=== PATIENT | female | born 1950 | race Caucasian/White ===

== ENCOUNTER → 2017-01-23 | Outpatient (CLI) | payer MEDICARE ==
--- NOTE | 2017-01-24 13:32 | MM ---
Reason for exam: screening (asymptomatic). Last mammogram was performed 1 year and 3 months ago. History: Patient is postmenopausal and has history of other cancer at age 56. Physical Findings: A clinical breast exam by your physician is recommended on an annual basis and results should be correlated with mammographic findings. MG 3D Screening Mammo W/Cad Bilateral CC and MLO view(s) were taken. Prior study comparison: October 30, 2015, bilateral MG 3d screening mammo w/cad. October 22, 2014, right breast MG work up mamm w CAD RT. There are scattered fibroglandular densities. Finding: There is a equal, imdistinct architectural distortion in the lower outer quadrant, middle position in the right breast, 8 cm from the nipple. New finding since October 30, 2015 and October 22, 2014. ASSESSMENT: Incomplete: need additional imaging evaluation, BI-RAD 0 RECOMMENDATION: Special view mammogram of the right breast. If lesion persists on supplemental views, image directed ultrasound is recommended. [facility] will attempt to contact patient to return for supplemental views and ultrasound if indicated.
== END | disposition home or self-care (01) ==
LOC: RADMAMWWP 09:52
PROVIDERS: ATTEND Family Medicine
DX: Z12.31 Encounter for screening mammogram for malignant neoplasm of breast (principal)
CPT/HCPCS: 77063; G0202

== ENCOUNTER → 2017-01-30 | Outpatient (CLI) | payer MEDICARE ==
--- NOTE | 2017-01-30 14:30 | MM ---
Reason for exam: additional evaluation requested from abnormal screening. Last mammogram was performed less than 1 month ago. History: Patient is postmenopausal and has history of other cancer at age 56. Physical Findings: Nurse did not find any significant physical abnormalities on exam. MG 3D Work Up W/Cad RT CC and MLO view(s) were taken of the right breast. Prior study comparison: January 23, 2017, bilateral MG 3d screening mammo w/cad. October 30, 2015, bilateral MG 3d screening mammo w/cad. There are scattered fibroglandular densities. Asymmetric breast tissue in the right middle posterior depth lower outer aspect. No worrisome lesion. These results were verbally communicated with the patient and result sheet given to the patient on 01/30/17. ASSESSMENT: Benign, BI-RAD 2 RECOMMENDATION: Return to routine screening mammogram schedule for both breasts.
== END | disposition home or self-care (01) ==
LOC: RADMAMWWP 13:19
PROVIDERS: ATTEND Family Medicine
DX: R92.8 Other abnormal and inconclusive findings on diagnostic imaging of breast (principal)
CPT/HCPCS: G0206; G0279

== ENCOUNTER → 2017-11-02 | Outpatient (CLI) | payer MEDICARE ==
--- NOTE | 2017-11-02 11:46 | BD ---
EXAMINATION TYPE: MG DEXA axial skeleton. DATE OF EXAM: 11/02/2017 COMPARISON: NONE CLINICAL HISTORY: M85.9 DISORDER OF BONE Height: 5 FT 6 IN Weight: 203 FRAX RISK QUESTIONS: Alcohol (3 or more units per day): NO Family History (Parent hip fracture): NO Glucocorticoids (More than 3mos): NO (Ex: prednisone, prednisolone, methylprednisolone, dexamethasone, and hydrocortisone). History of Fracture in Adulthood: YES Secondary Osteoporosis: 1. Type 1 Diabetes: NO 2. Hyperthyroidism: NO 3. Menopause before 45: NO 4. Malnutrition: NO 5. Chronic liver disease: NO Rheumatoid Arthritis: NO Current Tobacco Use: NO RISK FACTORS HISTORY OF: Active: YES Postmenopausal woman: AGE 55 MEDICATIONS: Prednisone or other steroids: How Long: Thyroid Medications: YES Which medication: SYNTHROID How Lon-15 YEARS Additional Medications: METOPROLOL, LISINOPRIL,HYDROCHLOROTHYIZIDE,LEVOTHYROXINE, PRAVASTATIN, WELLBU LEONOR, CONCERT Additional History: LYMPHOMA CHEMO EXAM MEASUREMENTS: Bone mineral densitometry was performed using the [employer] System. Bone mineral density as measured about the Lumbar spine is: ----- L1-L4(G/cm2): 1.366 T Score Values are as follows: ----- L2: 1.5 ----- L3: 2.4 ----- L4: 0.9 ----- L1-L4: 1.5 Bone mineral density has: INCREASED 1.8 % since study of: 2000 Bone mineral density about the R hip (g/cm2): 0.946 Bone mineral density about the L hip (g/cm2): 0.930 T Score values are as follows: -----R Neck: -0.7 -----L Neck: -0.8 -----R Total: -0.7 -----L Total: -0.2 Bone mineral density has: DECREASED -8.1 % since study of: 2000 IMPRESSION: No evidence for osteoporosis or osteopenia NOTE: T-SCORE=SD OF THE YOUNG ADULT MEAN.
== END ==
LOC: RADBDWWP 07:48
PROVIDERS: ATTEND Internal Medicine
DX: M85.9 Disorder of bone density and structure, unspecified (principal)
CPT/HCPCS: 77080

== ENCOUNTER → 2019-04-12 | Outpatient (CLI) | payer MEDICARE ==
--- NOTE | 2019-04-16 10:08 | MM ---
Reason for exam: screening (asymptomatic). Last mammogram was performed 2 years and 2 months ago. History: Patient is postmenopausal and has history of other cancer at age 56. Physical Findings: A clinical breast exam by your physician is recommended on an annual basis and results should be correlated with mammographic findings. MG 3D Screening Mammo W/Cad Bilateral CC and MLO view(s) were taken. Prior study comparison: January 30, 2017, right breast MG 3d work up w/cad RT. January 23, 2017, bilateral MG 3d screening mammo w/cad. There are scattered fibroglandular densities. No suspicious abnormality. Left cardiac device obscures the superior left breast. ASSESSMENT: Negative, BI-RAD 1 RECOMMENDATION: Routine screening mammogram of both breasts in 1 year.
== END | disposition home or self-care (01) ==
LOC: RADMAMWWP 13:09
PROVIDERS: ATTEND Internal Medicine
DX: Z12.31 Encounter for screening mammogram for malignant neoplasm of breast (principal)
CPT/HCPCS: 77063; 77067

== ENCOUNTER → 2019-07-29 | Outpatient (CLI) | payer MEDICARE ==
--- NOTE | 2019-07-30 04:22 | CT ---
EXAMINATION TYPE: CT lumbar spine wo con DATE OF EXAM: 07/29/2019 COMPARISON: None HISTORY: 69-year-old female Spondylosis, lumbosacral region. Pt c/o lower back pain, with pain radiat ing RT side. Denies injury. TECHNIQUE: Contiguous axial scanning of the lumbar spine without IV contrast. Coronal and sagittal re constructions performed. CT DLP: 1597.90 mGycm Automated exposure control for dose reduction was used. FINDINGS: Right ventricular AICD lead. A couple punctate calcified granulomas within the spleen. Otherwise, no prevertebral or paravertebral soft tissue abnormality seen. Degenerated levoconvex scoliosis mid to lower lumbar spine. Advanced disc/endplate degenerative change along the right lateral side of cavity and slight right la teral subluxation of L2 on L3 and L3 on L4. Vertebral body heights are preserved. Advanced hypertrophic facet arthropathy is present throughout with grade 1 retrolisthesis at L1-L2 an d grade 1, nearly grade 2 anterolisthesis at L4-L5. At T12-L1, there is disc osteophyte complex mildly narrowing the spinal canal with mild left neurofor aminal stenosis. At L1-L2, there is hypertrophic facet arthropathy with trace grade 1 retrolisthesis and bulging disc causing mild narrowing of the spinal canal. Mild right neuroforaminal stenosis. At L2-L3, disc osteophyte complex mildly narrowing the spinal canal. Hypertrophic facet arthropathy c ontributes to moderate left and [id number] right neuroforaminal stenosis. At L3-L4, diffuse disc bulge mildly narrowing the spinal canal. Additional hypertrophic facet arthrop athy contributes to moderate right greater than left. Foraminal stenosis. At L4-L5, severe hypertrophic facet arthropathy with nearly grade 2 anterolisthesis and uncovering of the posterior intervertebral disc. Severe focal spinal canal stenosis at this level with moderate to severe right and moderate left neuroforaminal stenosis. At L5-S1, hypertrophic facet arthropathy with mild right neuroforaminal stenosis. No significant spin al canal stenosis. IMPRESSION: 1. DEGENERATED LEVOCONVEX CURVATURE ALONG THE MID TO LOWER LUMBAR SPINE. ADVANCED HYPERTROPHIC FACET ARTHROPATHY WITH TRACE GRADE 1 RETROLISTHESIS AT L1-L2 AND GRADE 1, NEARLY GRADE 2 ANTEROLISTHESIS AT L4-L5. 2. NO VERTEBRAL COMPRESSION OR COLLAPSE. 3. CHANGES RESULT IN SEVERE FOCAL SPINAL CANAL STENOSIS AT L4-L5 WITH MODERATE TO SEVERE RIGHT AND MO DERATE LEFT NEURAL FORAMINAL STENOSIS. 4. ADDITIONAL LEVELS OF MILD SPINAL CANAL STENOSIS THROUGHOUT AND VARIABLE MILD/MODERATE NEUROFORAMIN AL STENOSIS OUTLINED ABOVE.
== END | disposition home or self-care (01) ==
LOC: RADCTMAIN 16:10
PROVIDERS: ATTEND Internal Medicine
DX: M48.061 Spinal stenosis, lumbar region without neurogenic claudication (principal); M46.96 Unspecified inflammatory spondylopathy, lumbar region; M43.8X6 Other specified deforming dorsopathies, lumbar region
CPT/HCPCS: 72131

== ENCOUNTER → 2019-10-03 | Outpatient (CLI) | payer MEDICARE ==
[2019-10-03 11:26] VITALS: BP 150/90; PULSE 62; RESP 16
--- NOTE | 2019-10-03 14:51 | P.PAINCN ---
History of Present Illness - Reason for Consult Consult date: 10/03/19 - History of Present Illness This is an initial consultation visit for this 69 years old male with a chronic history of low back pain and started 10 years ago, and intensity of the pain increased over the last, and currently the pain is constant and increases with any activity radiated to the buttock area bilaterally, she is able to walk on her own she denies any motor or sensory deficit, she denies any fever or night s weats she denies any change in the bowel movement or urination, the pain is constant and increases with any activity interfere with the quality of life, Past Medical History Past Medical History: Cancer, Deep Vein Thrombosis (DVT), Hyperlipidemia, Hypertension, Thyroid Disorder Additional Past Medical History / Comment(s): NON HODGKINS LYMPHOMA(chemo received 2005)/ DVT LEFT ARM, FRACTURE OF LEFT FOOT History of Any Multi-Drug Resistant Organisms: None Reported Past Surgical History: AICD, Tubal Ligation Additional Past Surgical History / Comment(s): LEFT FOOT Past Anesthesia/Blood Transfusion Reactions: Motion Sickness Type of Cardiac Device: AICD Device Placement Date:: 2008 Smoking Status: Never smoker - Past Family History Father Family Medical History: Cancer Additional Family Medical History / Comment(s): LUNG CANCER Medications and Allergies Home Medications Medication Instructions Recorded Confirmed Type Hydrochlorothiazide 12.5 mg PO DAILY 09/23/14 10/03/19 History Levothyroxine Sodium [Synthroid] 125 mcg PO MOTUWETHFRSA 09/23/14 10/03/19 History Lisinopril [Prinivil] 20 mg PO BID 09/23/14 10/03/19 History Methylphenidate HCl [Concerta] 54 mg PO DAILY 09/23/14 10/03/19 History Metoprolol Tartrate [Lopressor] 50 mg PO HS 09/23/14 10/03/19 History Metoprolol Tartrate [Lopressor] 100 mg PO DAILY 09/23/14 10/03/19 History Multivitamins, Thera [Multivitamin 1 each PO DAILY 09/23/14 10/03/19 History (formulary)] buPROPion HCL [Wellbutrin XL] 300 mg PO DAILY 09/23/14 10/03/19 History Pravastatin Sodium [Pravachol] 20 mg PO HS 09/20/16 10/03/19 History Omeprazole [PriLOSEC] 20 mg PO AC-SUPPER 10/27/16 10/03/19 History Naproxen Sodium [Aleve] 1 tab PO BID PRN 10/03/19 10/03/19 History Omeprazole Magnesium [PriLOSEC OTC] 1 tab PO DAILY 10/03/19 10/03/19 History Allergies Allergy/AdvReac Type Severity Reaction Status Date / Time No Known Allergies Allergy Verified 10/02/19 14:00 Physical Exam Vitals: Vital Signs Pulse Resp BP Pulse Ox 10/03/19 11:21 62 16 150/90 98 REVIEW OF ORGAN SYSTEMS: CONSTITUTIONAL: No fevers or chills. No recent weight loss. EYES: denies troubles with vision. HEENT: No difficulties with hearing. No nosebleeds. No difficulty swallowing. RESPIRATORY: Denies any troubles with breathing or dyspnea on exertion. CARDIOVASCULAR: Denies any chest pain, palpitations, or recent heart attacks. GASTROINTESTINAL: Denies fatty food intolerance. Has change in bowel habits and gas bloat. GENITOURINARY: Denies any blood in urine. Has increased urinary frequency. NEUROLOGICAL: s. No seizure disorders or headaches. MUSCULOSKELETAL: Has back pain. SKIN:no skin cancer. No rash. PSYCHIATRIC: Denies current depression or suicidal thoughts. ENDOCRINE: Denies current thyroid disorders. Denies any blood sugar glucose intolerance. HEME/LYMPHATIC: Denies any lumps and bumps around the neck. History of deep venous thrombosis. ALLERGY/IMMUNOLOGY: No immunoglobulin therapy. No immune deficiencies. BREAST: Denies current breast lumps, pain or nipple discharge. Physical Examinations : Constitutiona : Cooperative , not in acute distress . HEENT : nech : supple , no Lymphadenopathy , normal thyroid size . : eyes no ptosis , no icterus, no photophobia . : ENT normal of hearing , normal oropharynx , no Thrush . Respiratory : Chest clear to auscultations Bilaterally , no wheezing , no Rhonchi . Cardiovascula : regular rate and rhythem , S1 , S2 , no S3 , no S4. Gastrointestina : abdomen soft no tenderness , bowel sounds , no organomegally . Genitourinary : Defferred . neurologic : Cranial nerve II to XII intact , no focal neurological deffecit . psychatric : alert , oriented X 3 , appropriate affect , intact judgment and insight . Lymphatic : no Lymphadenopathy . musculoskeltal : Lumber spine moter stegnth lower extremities ,thigh and legs 5/5 Right side , 5/5 Left side deep tendon reflexes : normal Knee Jerk , normal ankle Jerk lumber facet Loading Test= positive Right , positive Left Range of motion of the lumbar spine Flexion 30 degrees, extension 10 degrees strait leg raising test , positive at 45degree Fabere test= positive Right , and positive left . Sever tenderness over the Sacroiliac joint on the Right , and Left sides Gaenslen test= positive bilaterally. Seated flexion test= positive bilaterally. Results Comments: Computed tomography scan of the lumbar spine= multilevel lumbar degenerative disc disease and multilevel lumbar facet arthropathy, lumbar spinal stenosis Assessment and Plan Plan: Assessment and plan= chronic severe low back pain secondary to multifactorial causes lumbar degenerative disc disease lumbar spinal stenosis and lumbar spondylosis with lumbar facet arthropathy, and bilateral sacroiliitis. She will be good candidate to have lumbar epidural steroid injections under fluoroscopy guidance at L5-S1 x2 , we reevaluated the patient's response to the treatment after the second lumbar epidural steroid injections, most likely patient need diagnostic medial branch block and possible RFA of the medial branch depending, on her response to the lumbar epidural steroid injection, treatment plan discussed with the patient and she agreed with the preceding Time with Patient: Greater than 30 PQRS Measure Charge Sheet Measure #130: Documentation of Current Meds in Medical Chart: Patient's medications documented in chart Measure #226: Tobacco Use: Screen & Cessation Intervention: Pt not a tobacco user Measure #111: Pneumonia Vaccination: Pneumococcal vaccine administered or previously received Measure #47: Advance Care Plan: Advance care planning discussed & documented, pt chose/unable to give Measure #412: Opioid Treatment Agreement: No documentation of signed opioid treatment agreement Measure #408: Opioid Therapy Follow-up Evaluation: Patient had NO f/u eval minimum every 3 months during opioid therapy Measure #317: Preventitive Care & Scrn High Bld Press & F/U: Pre-hypertensive or hypertensive BP documented, pt will f/u with PCP Measure #128: Body Mass Index (BMI) Screening & Follow-up: BMI documented ABOVE normal parameters - f/u documented Measure #131: Pain Assessment & Follow-up: Pain positive & plan documented, Follow-up scheduled Measure #431: Unhealthy Alcohol Use Preventative Care & Scrn: Patient not identified as an unhealthy alcohol user PQRS Narrative: Smoking Status Never smoker Blood Pressure 150/90 Pain Intensity [Lower Back] 3 Scale Used Numeric (1 - 10) Hx Alcohol Use (MH) Yes Home Medications: Ambulatory Orders Hydrochlorothiazide 12.5 mg PO DAILY 09/23/14 Levothyroxine Sodium [Synthroid] 125 mcg PO MOTUWETHFRSA 09/23/14 Lisinopril [Prinivil] 20 mg PO BID 09/23/14 Methylphenidate HCl [Concerta] 54 mg PO DAILY 09/23/14 Metoprolol Tartrate [Lopressor] 50 mg PO HS 09/23/14 Metoprolol Tartrate [Lopressor] 100 mg PO DAILY 09/23/14 Multivitamins, Thera [Multivitamin (formulary)] 1 each PO DAILY 09/23/14 buPROPion HCL [Wellbutrin XL] 300 mg PO DAILY 09/23/14 Pravastatin Sodium [Pravachol] 20 mg PO HS 09/20/16 Omeprazole [PriLOSEC] 20 mg PO AC-SUPPER 10/27/16 Naproxen Sodium [Aleve] 1 tab PO BID PRN 10/03/19 Omeprazole Magnesium [PriLOSEC OTC] 1 tab PO DAILY 10/03/19
== END | disposition home or self-care (01) ==
LOC: PNWHC3 11:08
PROVIDERS: ATTEND Specialist
DX: G89.29 Other chronic pain (principal); M48.061 Spinal stenosis, lumbar region without neurogenic claudication; M51.36 Other intervertebral disc degeneration, lumbar region; M47.816 Spondylosis without myelopathy or radiculopathy, lumbar region; M46.96 Unspecified inflammatory spondylopathy, lumbar region; M46.1 Sacroiliitis, not elsewhere classified; I10 Essential (primary) hypertension; E78.5 Hyperlipidemia, unspecified; Z79.890 Hormone replacement therapy; Z79.1 Long term (current) use of non-steroidal anti-inflammatories (NSAID); Z79.899 Other long term (current) drug therapy
CPT/HCPCS: 99211

== ENCOUNTER 2019-10-16 07:43 | Day surgery (SDC) | payer MEDICARE ==
[2019-10-14 15:41] VITALS: BMI 31.4
[~2019-10-16 07:43] MED LIST: LACTATED RINGERS 1,000 ML IV SCH
[2019-10-16 08:33] VITALS: RESP 16; TEMP 97.4
--- NOTE | 2019-10-16 09:16 | P.PCN ---
Date of Procedure: 10/16/19 Procedure(s) Performed: PREOPERATIVE DIAGNOSIS: 1- Lumbar Degenerative Disc Diseases 2-Lumbar spondylosis with Facet arthropathy without myelopathy. 3-lumbar spinal stenosis. POSTOPERATIVE DIAGNOSIS: 1-Lumber Degenerative Disc Diseases 2-Lumbar spondylosis with Facet arthropathy without myelopathy. 3-lumbar spinal stenosis PROCEDURE 1. Lumbar epidural steroid injection under fluoroscopic guidance at the L5-S1 level. (Fluoroscopy imaging was available in radiology department) 2. Lumbar epidurogram. ANESTHESIA: Local with 1% lidocaine 3 ml and , moderate sedation with intravenous Versed 2 mg ,and fentanyle 50 Mcg EBL: Minimal PROCEDURE INDICATION: The patient with low back pain and radiculitis symptoms unresponsive to conservative treatment. Fluoroscopy was used to optimize visualization of the needle placement and to maximize safety. PROCEDURE DESCRIPTION / TECHNIQUE: The patient was seen and identified in the preoperative area. Risks, benefits, complications including but not limited to infections ,bleeding ,allergic reaction to the medications ,nerve damage and not complete pain releife , and alternatives were discussed with the patient. The patient agreed to proceed with the procedure and signed the consent. IV was started, and vital signs were stable. Patient was taken to the OR and time out was completed. The patient was placed in the prone position on procedure table and a pillow was placed under the abdomen to reduce lumbar lordosis. The lumbosacral area was prepped and draped in the usual sterile fashion.ere closely monitored during the procedure. Conscious sedation was used during the procedure to decrease patients anxiety. Vital signs was monitered during the entire procedure. Using anterior-posterior fluoroscopy, the L5-S1 interlaminar space was identified and the skin over this site was marked and then infiltrated with 1% lidocaine subcutaneously. Subsequently, a 20-gauge Tuohy epidural needle was inserted and advanced toward the epidural space using the ``Loss of resistance technique and guided by AP and lateral fluoroscopy. The correct needle position in the epidural space was verified with the injection of 2 mL of the water soluble contrast dye Isovue 200 contrast and observing an excellent epidurogram with the epidural spread of the dye, after negative aspiration for blood and CSF and in the absence of paresthesias. Again after negative aspiration, a 6 ml mixture containing 60 mg of Depo-medrol , and 2 ml of preservative free Normal Saline, and 2 ml of preservative free lidocaine 1% solution was injected and a washout of epidurogram was seen. Needle was withdrawn intact, skin was cleansed, and bandages were applied. COMPLICATIONS: None DISPOSITION / PLANS: The patient was placed in a supine position and transferred to the recovery area in a stable condition for observation. There was no evidence of lower extremity motor or sensory deficit after the procedure. Patient was discharged from the recovery room after meeting discharge criteria. Home discharge instructions were given to the patient by the staff. The patient was reexamined prior to discharge. The patient will schedule a follow up in the clinic in 2-4 weeks.
[2019-10-16] MEDS ORDERED: IV FLUID CONTINUATION 1,000 ML IV ONE (09:22)
[2019-10-16 09:41] VITALS: BP 153/97; PULSE 62
--- NOTE | 2019-10-16 09:48 | FL ---
Fluoroscopy History: Lower back pain JADONI, 7sec fl time
== END 2019-10-16 09:59 | disposition home or self-care (01) ==
LOC: ORPAIN 07:43
PROVIDERS: ATTEND Specialist
DX: G89.29 Other chronic pain (principal); M47.26 Other spondylosis with radiculopathy, lumbar region; M48.061 Spinal stenosis, lumbar region without neurogenic claudication; M51.16 Intervertebral disc disorders with radiculopathy, lumbar region; I10 Essential (primary) hypertension; E78.5 Hyperlipidemia, unspecified; E07.9 Disorder of thyroid, unspecified; M46.1 Sacroiliitis, not elsewhere classified; Z86.718 Personal history of other venous thrombosis and embolism; Z85.72 Personal history of non-Hodgkin lymphomas; Z92.21 Personal history of antineoplastic chemotherapy; Z98.890 Other specified postprocedural states; Z95.810 Presence of automatic (implantable) cardiac defibrillator; Z98.51 Tubal ligation status; Z80.1 Family history of malignant neoplasm of trachea, bronchus and lung; Z79.890 Hormone replacement therapy; Z79.899 Other long term (current) drug therapy
CPT/HCPCS: 62323; J2250; J1030; J3010; Q9966

== ENCOUNTER → 2019-10-30 | Outpatient (CLI) | payer MEDICARE ==
--- NOTE | 2019-10-30 11:09 | BD ---
EXAMINATION TYPE: Axial Bone Density DATE OF EXAM: 10/30/2019 COMPARISON: Prior DEXA bone scan November 02, 2017 CLINICAL HISTORY: Postmenopausal female. Age related osteoporosis. Height: 5 FT 5 1/2 IN Weight: 202 FRAX RISK QUESTIONS: Alcohol (3 or more units per day): NO Family History (Parent hip fracture): NO Glucocorticoids (More than 3mos): NO (Ex: prednisone, prednisolone, methylprednisolone, dexamethasone, and hydrocortisone). History of Fracture in Adulthood: YES Secondary Osteoporosis: 1. Type 1 Diabetes: NO 2. Hyperthyroidism: NO 3. Menopause before 45: NO 4. Malnutrition: NO 5. Chronic liver disease: NO Rheumatoid Arthritis: NO Current Tobacco Use: NO RISK FACTORS HISTORY OF: Active: YES Postmenopausal woman: APPROX AGE 55 MEDICATIONS: Prednisone or other steroids: How Long: Thyroid Medications: YES Which medication: SYNTHROID How Long: APPROX 15 YEARS Additional Medications: SYNTHROID, METOPROLOL, LISINOPRIL, HYDROCHLOROTHIAZIDE, PRAVASTATIN, WELLBUT RIN, CONCERTA Additional History: JUST HAD STEROID SHOT IN HER BACK TWO WEEKS AGO EXAM MEASUREMENTS: Bone mineral densitometry was performed using the [employer]. Bone mineral density as measured about the Lumbar spine is: ----- L1-L4(G/cm2): 1.357 T Score Values are as follows: ----- L2: 1.9 ----- L3: 1.7 ----- L4: 0.7 ----- L1-L4: 1.5 Bone mineral density has: DECREASED -1.6 % since study of: 2016 Bone mineral density about the R hip (g/cm2): 0.922 Bone mineral density about the L hip (g/cm2): 0.922 T Score values are as follows: -----R Neck: -0.8 -----L Neck: -0.8 -----R Total: -1.1 -----L Total: -0.2 Bone mineral density has: DECREASED -3.2 % since study of: 2016 IMPRESSION: Normal (Values between +1 and -1 indicate normal bone mass). Consider repeating this study in 5 year s or sooner if there is some new clinical indication. No significant change from prior. NOTE: T-SCORE=SD OF THE YOUNG ADULT MEAN.
== END | disposition home or self-care (01) ==
LOC: RADBDWWP 09:40
PROVIDERS: ATTEND Internal Medicine
DX: M81.0 Age-related osteoporosis without current pathological fracture (principal)
CPT/HCPCS: 77080

== ENCOUNTER → 2020-07-22 | Outpatient (CLI) | payer MEDICARE ==
[2020-07-22 14:02] VITALS: BP 145/77; PULSE 75; RESP 14; TEMP 98.3
--- NOTE | 2020-07-22 14:48 | P.PAINPG ---
Subjective Progress Note Date: 07/22/20 This is a follow-up visit for this 70 years old female with a chronic history of severe low back pain she is diagnosed with lumbar degenerative disc disease lumbar spinal stenosis and lumbar spondylosis with lumbar facet arthropathy, visual was seen in the pain clinic last year and we did lumbar epidural steroid injections x1, she reported that she had minimal benefit for short-term, currently she is complaining of severe low back pain with radiation to the posterior aspect of her lower extremity bilaterally more prominent on the right side, the pain is constant and increases with any activity, she is doing physical therapy, she denies any motor or sensory deficits but she feels some weakness in her lower extremity especially after she walked for a distance, she had no fever or numbness which has no change in the bowel movement or urination Objective - Vital Signs Vital signs: Vital Signs Temp 98.3 F 07/22/20 13:47 Pulse 75 07/22/20 13:47 Resp 14 07/22/20 13:47 BP 145/77 07/22/20 13:47 Pulse Ox 96 07/22/20 13:47 - Exam Constitutiona : Cooperative , not in acute distress . HEENT : nech : supple , no Lymphadenopathy , normal thyroid size . : eyes no ptosis , no icterus, no photophobia . neurologic : Cranial nerve II to XII intact , no focal neurological deffecit . psychatric : alert , oriented X 3 , appropriate affect , intact judgment and insight . Lymphatic : no Lymphadenopathy . musculoskeltal : Lumber spine moter stegnth lower extremities ,thigh and legs 5/5 Right side , 5/5 Left side deep tendon reflexes : normal Knee Jerk , normal ankle Jerk lumber facet Loading Test= positive Right , positive Left Range of motion of the lumbar spine Flexion 30 degrees, extension 10 degrees strait leg raising test , positive at 45 degree Fabere test= positive Right , and positive left . Sever tenderness over the Sacroiliac joint on the Right , and Left sides Gaenslen test= positive bilaterally. Seated flexion test= positive bilaterally. Assessment and Plan Plan: Computed tomography scan of the lumbar spine= multilevel lumbar degenerative disc disease and multilevel lumbar facet arthropathy, lumbar spinal stenosis Assessment and plan= chronic severe low back pain secondary to multifactorial causes lumbar degenerative disc disease lumbar spinal stenosis and lumbar spondylosis with lumbar facet arthropathy, and bilateral sacroiliitis. Patient had lumbar epidural steroid injections 1 done last year , she had the minimal benefit for short-term Patient will be good candidate for diagnostic medial branch block lumbar area L3, L4, L5 to target the facet joint at L4-5 , and L5-S1 x2 and if it is positive ,then will proceed with RFA of the medial branch lumbar area (note = patient had right upper extremity very small open wound size 4-5 mm in diameter for this reason ,we will avoid using straight during the diagnostic medial branch block ) Time with Patient: Less than 30 PQRS Measure Charge Sheet Measure #130: Documentation of Current Meds in Medical Chart: Patient's medications documented in chart Measure #226: Tobacco Use: Screen & Cessation Intervention: Pt screened for tobacco use AND intervention given Measure #111: Pneumonia Vaccination: Pneumococcal vaccine administered or previously received Measure #47: Advance Care Plan: Advance care planning discussed & documented, pt chose/unable to give Measure #412: Opioid Treatment Agreement: No documentation of signed opioid treatment agreement Measure #408: Opioid Therapy Follow-up Evaluation: Patient had NO f/u eval minimum every 3 months during opioid therapy Measure #317: Preventitive Care & Scrn High Bld Press & F/U: Pre-hypertensive or hypertensive BP documented, pt will f/u with PCP Measure #128: Body Mass Index (BMI) Screening & Follow-up: BMI documented ABOVE normal parameters - f/u documented Measure #131: Pain Assessment & Follow-up: Pain positive & plan documented Measure #431: Unhealthy Alcohol Use Preventative Care & Scrn: Patient identified as unhealthy alcohol user; counseling given PQRS Narrative: Smoking Status Never smoker Blood Pressure 145/77 Pain Intensity [Lower Back] 1 Scale Used Numeric (1 - 10) Hx Alcohol Use (MH) Yes Home Medications: Ambulatory Orders Levothyroxine Sodium [Synthroid] 125 mcg PO MOTUWETHFRSA 09/23/14 Metoprolol Tartrate [Lopressor] 50 mg PO HS 09/23/14 Metoprolol Tartrate [Lopressor] 100 mg PO DAILY 09/23/14 Multivitamins, Thera [Multivitamin (formulary)] 1 each PO DAILY 09/23/14 buPROPion HCL [Wellbutrin XL] 300 mg PO DAILY 09/23/14 hydroCHLOROthiazide 12.5 mg PO DAILY 09/23/14 lisinopriL [Prinivil] 20 mg PO BID 09/23/14 Pravastatin Sodium [Pravachol] 20 mg PO HS 09/20/16 Omeprazole [PriLOSEC] 20 mg PO AC-SUPPER 10/27/16 Naproxen Sodium [Aleve] 1 tab PO BID PRN 10/03/19 Omeprazole Magnesium [PriLOSEC OTC] 40 mg PO QAM 10/03/19 Sulfamethoxazole/Trimethoprim [Sulfamethoxazole-Tmp Ds Tablet] 1 each PO BID 07/15/20 Controlled Substance Measures - Controlled Substance Measures Is patient prescribed a controlled substance at discharge?: No
== END | disposition home or self-care (01) ==
LOC: PNWHC3 13:24
PROVIDERS: ATTEND Specialist
DX: M48.061 Spinal stenosis, lumbar region without neurogenic claudication (principal); M47.816 Spondylosis without myelopathy or radiculopathy, lumbar region; M51.36 Other intervertebral disc degeneration, lumbar region; M46.96 Unspecified inflammatory spondylopathy, lumbar region; M46.1 Sacroiliitis, not elsewhere classified; Z79.891 Long term (current) use of opiate analgesic; Z79.899 Other long term (current) drug therapy; Z79.890 Hormone replacement therapy
CPT/HCPCS: 99211

== ENCOUNTER 2020-08-11 11:13 | Day surgery (SDC) | payer MEDICARE ==
[2020-08-07 12:16] VITALS: BMI 32.5
[2020-08-11 11:44] VITALS: RESP 16; TEMP 96.8
[2020-08-11] MEDS ORDERED: LIDOCAINE 1% (10MG/ML) FOR IV START INTRADERMA ONE (11:50)
[2020-08-11] MEDS ORDERED: ROPIVACAINE 5MG/ML 20ML VIAL ONE (12:31)
[2020-08-11] MEDS ORDERED: MIDAZOLAM 2 MG/2 ML VIAL ONE (12:31)
[2020-08-11] MEDS ORDERED: fentaNYL (PF) 50 MCG/ML 2 ML AMP ONE (12:31)
--- NOTE | 2020-08-11 12:53 | P.PCN ---
Date of Procedure: 08/11/20 Procedure(s) Performed: PREOPERATIVE DIAGNOSIS : 1- Lumbar spondylosis with Facet Arthropathy without myelopathy . 2- Lumber degenerative disc disease POSTOPERATIVE DIAGNOSIS: 1- Lumbar spondylosis with Facet Arthropathy without myelopathy . 2- Lumber degenerative disc disease PROCEDURE: Diagnostic bilateral L3 , L4 , and L5 medial branch block under fluoroscopy guidance(fluoroscopy images available in the radiology Department ) ( To target the facet joint between L4-5 , and L5-S1 ) ANESTHESIA:, moderate sedation with intravenous Versed 1 mg and Fentanyl 50 mcg. EBL: Minimal COMPLICATION: None PROCEDURE INDICATION: Chronic low back pain secondary to Facet arthropathy unresponsive to conservative treatment. PROCEDURE DESCRIPTION: the patient was seen and identified in the preop holding area , risks and benefits and possible complications of the procedure and alternative were discussed with the patient, and the patient agreed to proceed with the procedure and signed the consent and vital signs monitored during the procedure and fluoroscopy was used to maximize the benefit and accuracy of the needle placement, and sedation was given to decrease patient anxiety, patient was taken to the procedure room and placed in prone position vital signs monitored in the back prepped with chlorhexidine X3 then under strict sterile technique using a right oblique fluoroscopy ,the junction of the transverse process and the superior articulating process of the right L3 , L4 , and L5 vertebra which corresponding to the fluoroscopy image of the eye of the Alan dog on the block side for the medial branches and subsequently , after local infiltration of skin and subcu tissuies with Ropivacaine 0.5 % , one mL at each level ,then 22-gauge Quincke-type needles , 3 needle was used , each one of them placed at the junction of the base of the transverse process and the superior articular process at the appropriate level, and the needle was advanced until the periosteum contacted, needle placement confirmed with AP oblique and lateral view and after appropriate needle placement confirmed, and after negative aspiration for heme and CSF and there was no paresthesia 1-1/2 mL of Ropivacaine 0.5% , then half mL injected at each level after negative aspiration the needle subsequently removed and the same procedure repeated for the left side at left side at L3 , L4 and L5 levels. At the end of the procedure and the needles removed and a bandage applied after the skin was cleaned the cleaning solution patient taken to recovery room in stable condition and monitors in the recovery room for 20-30 minutes and discharged home in stable condition after discharge criteria met and patient will follow up with the pain clinic in 2-4 weeks note = next time I recommend to use 5 inch long needles
[2020-08-11] MEDS ORDERED: IV FLUID CONTINUATION 700 ML IV ONE (12:58)
[2020-08-11 13:15] VITALS: BP 135/81; PULSE 60
--- NOTE | 2020-08-11 13:23 | FL ---
Fluoroscopy INDICATION: Pain FINDINGS: Fluoroscopy time: 11 seconds. Images obtained: 4. IMPRESSIONS: 1. Documentation of fluoroscopy.
== END 2020-08-11 13:30 | disposition home or self-care (01) ==
LOC: ORPAIN 11:13
PROVIDERS: ATTEND Specialist
DX: M47.816 Spondylosis without myelopathy or radiculopathy, lumbar region (principal); M51.36 Other intervertebral disc degeneration, lumbar region; S41.101A Unspecified open wound of right upper arm, initial encounter; B95.62 Methicillin resistant Staphylococcus aureus infection as the cause of diseases classified elsewhere; Z78.0 Asymptomatic menopausal state; X58.XXXA Exposure to other specified factors, initial encounter
CPT/HCPCS: 64493; 64494; J2250; J3010; J2795; 99152

== ENCOUNTER 2020-08-25 12:55 | Day surgery (SDC) | payer MEDICARE ==
[2020-08-24 12:28] VITALS: BMI 32.5
[2020-08-25 13:17] VITALS: RESP 16; TEMP 97.1
[2020-08-25] MEDS ORDERED: LIDOCAINE 1% (10MG/ML) FOR IV START INTRADERMA ONE (13:24)
[2020-08-25] MEDS ORDERED: MIDAZOLAM 2 MG/2 ML VIAL ONE (13:34)
[2020-08-25] MEDS ORDERED: TRIAMCINOLONE ACETONIDE 40 MG/ML 1 ML VIAL ONE (13:34)
[2020-08-25] MEDS ORDERED: ROPIVACAINE 5MG/ML 20ML VIAL ONE (13:34)
--- NOTE | 2020-08-25 13:54 | P.PCN ---
Date of Procedure: 08/25/20 Surgeon: Wei Acuna Pathology: none sent Condition: stable Disposition: PACU Description of Procedure: PREOPERATIVE DIAGNOSIS : 1- Lumbar spondylosis with Facet Arthropathy without myelopathy . 2- Lumber degenerative disc disease POSTOPERATIVE DIAGNOSIS: 1- Lumbar spondylosis with Facet Arthropathy without myelopathy . 2- Lumber degenerative disc disease PROCEDURE: Diagnostic bilateral L3 -4 , L4 -5 , and L5-S1 medial branch block under fluoroscopy Physician: Wei Acuna MD ANESTHESIA: Local with 1% lidocaine; IV moderate conscious sedation with Versed 2 mg . EBL: Negligible COMPLICATION: None. PROCEDURE INDICATION: Chronic low back pain secondary to Facet arthropathy unresponsive to conservative treatment. PROCEDURE DESCRIPTION: the patient was seen and identified in the preop holding area , risks and benefits and possible complications of the procedure and alternatives were discussed with the patient, and the patient agreed to proceed with the procedure and signed the consent. IV was started and vital signs monitored during the procedure and fluoroscopy was used to maximize the benefit and accuracy of the needle placement, sedation was given to decrease patient anxiety, patient was taken to the procedure room and placed in prone position vital signs monitored. The patient was brought into the procedure room and placed in prone position. Skin was prepped with Chloraprep and draped in a sterile manner. Lidocaine 1% was used to numb the skin up at the target points that were chosen as follows: at the L5-S1 level which corresponds to the dorsal ramus of L5 the target points were at the superior medial aspect of the sacral ala on each side of the spine on the AP view of fluoroscopy, and for the L2, L3 and L4 medial branches the target points were the connection between the transverse process and the superior to go process of L3, L4 and L5 respectively on the oblique views of fluoroscopy. I used 22-gauge 5 inch Quincke spinal needles for this procedure and after contacting bone at the target points mentioned above I injected 1 mL of a mixture of Kenalog 40 mg +5 MLS of Ropivacaine 0.5% PF . Patient tolerated procedure well. At the end of the procedure the needles removed and a bandage applied after the skin was cleaned the cleaning solution. patient was then taken to the recovery room in stable condition and monitored in the recovery room for 20-30 minutes and discharged home in stable condition after discharge criteria met . A copy of the needle placement picture was saved to the C-arm machine.
[2020-08-25] MEDS ORDERED: IV FLUID CONTINUATION 800 ML IV ONE (13:55)
[2020-08-25 14:23] VITALS: BP 137/85; PULSE 72
--- NOTE | 2020-08-25 14:34 | FL ---
Fluoroscopy INDICATION: Pain FINDINGS: Fluoroscopy time: 7 seconds. Images obtained: 4. IMPRESSIONS: 1. Documentation of fluoroscopy.
== END 2020-08-25 14:28 | disposition home or self-care (01) ==
LOC: ORPAIN 12:55
PROVIDERS: ATTEND Anesthesiology
DX: G89.29 Other chronic pain (principal); M47.816 Spondylosis without myelopathy or radiculopathy, lumbar region; M51.36 Other intervertebral disc degeneration, lumbar region; I11.0 Hypertensive heart disease with heart failure; I50.9 Heart failure, unspecified; Z95.810 Presence of automatic (implantable) cardiac defibrillator; Z78.0 Asymptomatic menopausal state
CPT/HCPCS: 64493; 64494; 64495; J2250; J3301; J2795; 99152

== ENCOUNTER → 2020-09-16 | Outpatient (CLI) | payer MEDICARE ==
[2020-09-16 14:28] VITALS: BP 143/90; PULSE 78; RESP 18; TEMP 98.3
--- NOTE | 2020-09-16 14:46 | P.PN ---
Subjective Progress Note Date: 09/16/20 This is a 70-year-old female with history of lower back pain which has responded to a diagnostic lumbar medial branch block with more than 50% of pain relief. The pain relief that started immediately after the procedure and lasted only for couple of days. Patient denies new-onset weakness, bowel/bladder incontinence, or any other signs or symptoms of cauda equina syndrome. There are no signs of acute intoxication, and no indications of medication diversion or overuse. In addition to above, 13-point review of systems is also negative for chest pain, shortness of breath, changes in vision, changes in hearing, new onset weakness, abdominal pain, diarrhea, extreme fatigue, malaise, fever, skin changes, homicidal or suicidal ideation, or bowel or bladder incontinence. Vital Signs: Reviewed in EMR Gen: AAOx3, NAD HEENT: PERRLA,hearing grossly normal Pulm: resp unlabored Neck: supple, trachea midline Neuro exam of the lower extremities: Normal muscle strength bilaterally Straight leg raising test: Milton's test: Range of motion of the lumbar spine: Facet loading test: Tenderness in the paravertebral musculature: Positive on the lumbar area Neuro: CN II-XII grossly intact, Imaging: Reviewed in EMR/chart Assessment: Lumbar spondylosis without myelopathy Lumbar DDD Plan: 1. Explanation: Opioid and psychological risk scores were reviewed. Diagnoses, prognoses, and multiple treatment options including but not limited to physical therapy, interventional therapies, adjuvant medical therapies, narcotic medication therapies, and surgery were discussed with the patient and all questions were answered to the patient's satisfaction. 2. Opioid agreement: Signed with the patient and the patient is warned not to use opioids while driving or before driving and not to combine opioids with benzodiazepines or alcohol. 3. Counseling: The patient was counseled extensively on SMOKING CESSATION, BODY MASS INDEX, EXERCISE. Specifically, the patient was instructed regarding the importance of smoking cessation, obesity, and exercise in the context of both chronic pain and overall health. 4. Procedures: Scheduled for lumbar medial branch RFA bilaterally for the L4 5 and L5-S1 levels 5. Consultations: None 6. Investigations: None 7. Medications: none 8. Disposition: Return to the above-mentioned procedure as soon as possible and toward clinic in 4 weeks for reevaluation 9. Maps were reviewed and were appropriate. Objective - Vital Signs Vital signs: Vital Signs Temp 98.3 F 09/16/20 14:21 Pulse 78 09/16/20 14:21 Resp 18 09/16/20 14:21 BP 143/90 09/16/20 14:21 Pulse Ox 96 09/16/20 14:21
== END | disposition home or self-care (01) ==
LOC: PNWHC3 13:34
PROVIDERS: ATTEND Anesthesiology
DX: M51.36 Other intervertebral disc degeneration, lumbar region (principal); M47.816 Spondylosis without myelopathy or radiculopathy, lumbar region
CPT/HCPCS: 99211

== ENCOUNTER 2020-11-20 07:25 | Day surgery (SDC) | payer MEDICARE ==
[2020-11-17 09:40] VITALS: BMI 32.5
[2020-11-20] MEDS ORDERED: LIDOCAINE 1% (10MG/ML) FOR IV START INTRADERMA ONE (08:00)
[2020-11-20 08:11] VITALS: TEMP 97.9
[2020-11-20] MEDS ORDERED: MIDAZOLAM 2 MG/2 ML VIAL ONE (08:41)
[2020-11-20] MEDS ORDERED: ROPIVACAINE 5MG/ML 20ML VIAL ONE (08:41)
[2020-11-20] MEDS ORDERED: TRIAMCINOLONE ACETONIDE 40 MG/ML 1 ML VIAL ONE (08:41)
[2020-11-20] MEDS ORDERED: fentaNYL (PF) 50 MCG/ML 2 ML AMP ONE (08:41)
[2020-11-20] MEDS ORDERED: LIDOCAINE 1% INJ 10MG/ML (20 ML MDV) ONE (08:41)
--- NOTE | 2020-11-20 09:10 | P.PCN ---
Date of Procedure: 11/20/20 Surgeon: Wei Acuna Pathology: none sent Condition: stable Disposition: PACU Description of Procedure: PREOPERATIVE DIAGNOSIS: Right Lumbar spondylosis without myelopathy,obesity POSTOPERATIVE DIAGNOSIS: Lumbar spondylosis without myelopathy,obesity PROCEDURES : Right Radiofrequency thermocoagulation L3-L4, L4-L5, and L5-S1 medial branch, with fluoroscopic guidance ANESTHESIA: IV moderate conscious sedation with versed and fentanyl and local infiltration with lidocaine 1% 5 ml Physician:Wei Acuna MD EBL: Minimal PROCEDURE INDICATION: The patient with low back pain secondary to lumbar facet arthropathy who had more than 50% relief of her pain with previous diagnostic lumbar medial branch block with bupivacaine. PROCEDURE DESCRIPTION / TECHNIQUE: The patient was seen and identified in the preoperative area. Risks, benefits, complications, including but not limited to risk of infection ,bleeding , allergic reactions to the medications and no complete pain relief , and alternatives were discussed with the patient, the patient agreed to proceed with the procedure and signed the consent. IV was started. Vital signs remained stable throughout the procedure. Patient was taken to the OR and time out was completed. The patient was placed in the prone position on the procedure table. The lumber area was prepped and draped in the usual sterile fashion. . Vital signs were closely monitored during the procedure .IV sedation was used during the procedure to decrease patients anxiety. The target points were identified as follows: For the L5-S1 level which corresponds to the dorsal ramus of L5 the target point was at the superior medial aspect of the sacral ala on the -Rt- side of the spine on the AP view of fluoroscopy and for the L2, L3, and L4 medial branches the target points were at the connection between the transverse process and the superior articular process of L3, L4, and L5 vertebra respectively on the -Rt oblique view of fluoroscopy. skin was marked, and localized with 1% lidocaineat these points. Subsequently, an 18 -hl radiofrequency needles with a 10-mm curved active tips were advanced guided by fluoroscopy to each of the target points mentioned above in a superior medial direction to get the active tips as parallel as possible to the medial branches tracks. AP, oblique, and lateral views of fluoroscopy were used to verify needle tips position. Each level then underwent motor testing at 2.5 Hz and 0 to 3 volt with local stimulation, but no radicular symptoms down the legs. I then injected 1 mL of lidocaine 1% in each needle before starting radiofrequency thermocoagulation at 80 degrees celsius for 90 seconds. After that I injected 1 ml of PF Marcaine 0.5%(3 mls) with 40 mg of Kenalog, 1 mL of this mixture was given in each needle before taking the needles out intact. At the end of the procedure, the skin was cleansed and bandages were applied. A copy of needle placement fluoroscopy was saved on the C-arm machine. COMPLICATIONS: No acute complications. DISPOSITION / PLANS: The patient was placed in a supine position and transferred to the recovery area in a stable condition for observation and was discharged from the recovery room after meeting discharge criteria. Home discharge instructions given to the patient by the staff. The patient was reexamined prior to discharge. The patient will schedule a follow up in the clinic in 2-4 weeks.
[2020-11-20] MEDS ORDERED: IV FLUID CONTINUATION 1,000 ML IV ONE (09:16)
--- NOTE | 2020-11-20 09:19 | FL ---
EXAMINATION TYPE: FL guided pain mgmt statistic DATE OF EXAM: 11/20/2020 CLINICAL HISTORY: Low back pain. TECHNIQUE: Fluoroscopy. COMPARISON: None. FINDINGS: Fluoroscopic guidance was provided during pain relief procedure performed by Dr. Acuna. A total of 21 seconds of fluoroscopic time was utilized during the procedure and 3 spot images are a cquired. Images acquired shows needle localization at several levels in the lumbar spine. IMPRESSION: As Above.
[2020-11-20 09:21] VITALS: RESP 18
[2020-11-20 09:46] VITALS: BP 140/90; PULSE 78
== END 2020-11-20 09:48 | disposition home or self-care (01) ==
LOC: ORPAIN 07:25
PROVIDERS: ATTEND Anesthesiology
DX: M47.816 Spondylosis without myelopathy or radiculopathy, lumbar region (principal); I10 Essential (primary) hypertension; E78.5 Hyperlipidemia, unspecified; I73.9 Peripheral vascular disease, unspecified; E07.9 Disorder of thyroid, unspecified; Z79.890 Hormone replacement therapy; Z79.899 Other long term (current) drug therapy; Z95.810 Presence of automatic (implantable) cardiac defibrillator
CPT/HCPCS: 64635; 64636 ×2; J2250; J3301; J2001; J3010; J2795

== ENCOUNTER → 2021-01-06 | Outpatient (CLI) | payer MEDICARE ==
[2021-01-06 10:44] VITALS: BP 157/92; PULSE 70; RESP 18; TEMP 97.8
--- NOTE | 2021-01-06 11:25 | P.PN ---
Subjective Progress Note Date: 01/06/21 This is a follow-up visit for this 70 years old female with chronic history of severe low back pain, she is diagnosed with lumbar degenerative disc disease, lumbar spinal stenosis, and lumbar spondylosis with lumbar facet arthropathy, previously we have done diagnostic medial branch block bilaterally and she get significant improvement in her low back pain, and recently with an RFA of the medial branch lumbar area on the right side, currently she is complaining of severe low back pain with radiation to the buttock bilaterally, the pain is constant and increases with any activity, she is doing physical therapy, she denies any motor or sensory deficits , she had no fever or numbness which has no change in the bowel movement or urination Objective - Vital Signs Vital signs: Vital Signs Temp 97.8 F 01/06/21 10:42 Pulse 70 01/06/21 10:42 Resp 18 01/06/21 10:42 BP 157/92 01/06/21 10:42 Pulse Ox 99 01/06/21 10:42 - Exam Physical Examinations : -Constitutiona : Cooperative , not in acute distress . -HEENT : nech : supple , no Lymphadenopathy , normal thyroid size . : eyes : no ptosis , no icterus, no photophobia . - neurologic : Cranial nerve II to XII intact , no focal neurological deffecit . -psychatric : alert , oriented X 3 , appropriate affect , in tact judgment and insight . -Lymphatic : no Lymphadenopathy . - musculoskeltal : . Lumber spine moter stegnth lower extremities ,thigh and legs 5/5 Right side , 5/5 Left side deep tendon reflexes : normal Knee Jerk , normal ankle Jerk lumber facet Loading Test =positive Right , posiutive Left Range of motion of the lumbar spine Flexion 60 degrees, extension 30 degrees strait leg raising test = negative bilaterally Fabere test= negative bilaterally Sever tenderness over the Sacroiliac joint on the Right , and Left sides Gaenslen test= positive right ,and positive left . Seated flexion test= positive right ,and positive Left . Assessment and Plan Plan: Computed tomography scan of the lumbar spine= multilevel lumbar degenerative disc disease and multilevel lumbar facet arthropathy, lumbar spinal stenosis Assessment and plan= chronic severe low back pain secondary to multifactorial causes lumbar degenerative disc disease lumbar spinal stenosis and lumbar spondylosis with lumbar facet arthropathy, and bilateral sacroiliitis. Status post failed the medial branch lumbar area on the right side Patient will be scheduled to have RFA of the medial branch lumbar area on the left side at L3, L4, L5 in the future if she continued to have severe low back pain maybe she will benefit from bilateral sacroiliac joint steroid injection PQRS Measure Charge Sheet Measure #130: Documentation of Current Meds in Medical Chart: Patient's medications documented in chart Measure #226: Tobacco Use: Screen & Cessation Intervention: Pt is not tobacco user Measure #111: Pneumonia Vaccination: Pneumococcal vaccine not administered or previously received Measure #47: Advance Care Plan: Advance care planning discussed & documented, pt chose/unable to give Measure #412: Opioid Treatment Agreement: No documentation of signed opioid treatment agreement Measure #408: Opioid Therapy Follow-up Evaluation: Patient had NO f/u eval minimum every 3 months during opioid therapy Measure #317: Preventitive Care & Scrn High Bld Press & F/U: Pre-hypertensive or hypertensive BP documented, pt will f/u with PCP Measure #128: Body Mass Index (BMI) Screening & Follow-up: BMI documented ABOVE normal parameters - f/u documented Measure #131: Pain Assessment & Follow-up: Pain positive & plan documented Measure #431: Unhealthy Alcohol Use Preventative Care & Scrn: Patient identified as unhealthy alcohol user; counseling given PQRS Narrative: Time with Patient: Less than 30
== END | disposition home or self-care (01) ==
LOC: PNWHC3 10:12
PROVIDERS: ATTEND Specialist
DX: M48.061 Spinal stenosis, lumbar region without neurogenic claudication (principal); M51.36 Other intervertebral disc degeneration, lumbar region; M47.816 Spondylosis without myelopathy or radiculopathy, lumbar region; M46.1 Sacroiliitis, not elsewhere classified; G89.29 Other chronic pain
CPT/HCPCS: 99211

== ENCOUNTER 2021-01-29 09:52 | Day surgery (SDC) | payer MEDICARE ==
[2021-01-27 13:38] VITALS: BMI 32.8
[2021-01-29 10:22] VITALS: TEMP 97.8
[2021-01-29] MEDS ORDERED: LIDOCAINE 1% (10MG/ML) FOR IV START INTRADERMA ONE (10:33)
[2021-01-29] MEDS ORDERED: methylPREDNISolone ACETATE 40 MG/ML 1 ML VIAL ONE (10:37)
[2021-01-29] MEDS ORDERED: MIDAZOLAM 2 MG/2 ML VIAL ONE (10:37)
[2021-01-29] MEDS ORDERED: fentaNYL (PF) 50 MCG/ML 2 ML AMP ONE (10:37)
[2021-01-29] MEDS ORDERED: ROPIVACAINE 5MG/ML 20ML VIAL ONE (10:37)
--- NOTE | 2021-01-29 11:08 | P.PCN ---
Date of Procedure: 01/29/21 Procedure(s) Performed: PREOPERATIVE DIAGNOSIS: 1-Lumbar Spondylosis with Facet Arthropathy without myelopathy. POSTOPERATIVE DIAGNOSIS: 1- Lumbar Spondylosis with Facet Arthropathy without myelopathy. PROCEDURES : Left Radiofrequency thermocoagulation, L3 , L4 , and L5 medial branch, with fluoroscopic guidance (fluoroscopy images available in the radiology department) ( to denervate the facet joint at Left L4-5 ,and L5-S1 levels ) ANESTHESIA: Monitored anesthesia care by anesthesia department . EBL: Minimal PROCEDURE INDICATION: The patient with low back pain secondary to lumbar facet arthropathy who had more than 50% relief of her pain with previous diagnostic lumbar medial branch block with bupivacaine. PROCEDURE DESCRIPTION / TECHNIQUE: The patient was seen and identified in the preoperative area. Risks, benefits, complications, including but not limited to risk of infection ,bleeding , allergic reactions to the medications and no complete pain releife , and alternatives were discussed with the patient, the patient agreed to proceed with the procedure and signed the consent. IV was started. Vital signs remained stable throughout the procedure. Patient was taken to the OR and time out was completed. The patient was placed in the prone position on the procedure table. The lumber area was prepped and draped in the usual sterile fashion. . Vital signs were closely monitored during the procedure .IV sedation was used during the procedure to decrease patients anxiety. Using AP and then oblique fluoroscopy, the ``eye of the Alan dog corresponding to the connection between the superior and transverse articular processes of Left L3, L4, and L5 were identified, marked, and localized with 1% lidocaine. Subsequently, a 18 guage ( VENUM ) 150-mm radiofrequency cannula with a 10-mm active tip was advanced guided by fluoroscopy to each of the``eyes of the Alan dog at Left L3, L4, and L5. Each site then underwent sensory testing at 50 Hz and 0 to 1 volt and motor testing at 2.5 Hz and 0 to 3 volt with local stimulation, but no radicular symptoms down the legs. Thereafter each sites underwent radiofrequency thermocoagulation at 80 degrees celsius for 90 seconds after injecting 0.5 ml of PF Ropivacaine 1ml, then after the thermocoagulation done , 1 ml of the block solution containing Depo-Medrol 40 mg and 3 ml of Ropivacaine 0.5% was injected at the Left L3 , L4 , and L5 , levels after negative aspiration of CSF and blood and with no paresthesias. Cannulas were retracted while injecting lidocaine 1% until the needle is out. At the end of the procedure, the skin was cleansed and bandages were applied. COMPLICATIONS: No acute complications. DISPOSITION / PLANS: The patient was placed in a supine position and transferred to the recovery area in a stable condition for observation and was discharged from the recovery room after meeting discharge criteria. Home discharge instructions given to the patient by the staff. The patient was reexamined prior to discharge. The patient will schedule a follow up in the clinic in 2-4 weeks.
[2021-01-29] MEDS ORDERED: LACTATED RINGERS 1,000 ML IV ONE (11:13)
[2021-01-29 11:38] VITALS: PULSE 67; RESP 18
[2021-01-29 11:39] VITALS: BP 143/80
--- NOTE | 2021-01-29 11:41 | FL ---
Fluoroscopy INDICATION: Pain FINDINGS: Fluoroscopy time: 15 seconds. Images obtained: 3. IMPRESSIONS: 1. Documentation of fluoroscopy.
== END 2021-01-29 11:52 | disposition home or self-care (01) ==
LOC: ORPAIN 09:52
PROVIDERS: ATTEND Specialist
DX: M47.816 Spondylosis without myelopathy or radiculopathy, lumbar region (principal); I10 Essential (primary) hypertension; E03.9 Hypothyroidism, unspecified
CPT/HCPCS: 64635; 64636; J2250; J1030; J3010; J2795

== ENCOUNTER → 2021-02-15 | Outpatient (CLI) | payer MEDICARE ==
[2021-02-15 13:43] VITALS: BP 154/90; PULSE 69; RESP 18; TEMP 97.8
--- NOTE | 2021-02-15 13:50 | P.PN ---
Subjective Progress Note Date: 02/15/21 This is a follow-up visit for this 70 years old female, with chronic history of severe low back pain, she is diagnosed with lumbar degenerative disc disease, lumbar spinal stenosis, and lumbar spondylosis with lumbar facet arthropathy, previously we have done RFA of the medial branch lumbar area , currently she is complaining of severe low back pain with radiation to the buttock bilaterally, the pain is constant and increases with any activity, she is done physical therapy, she denies any motor or sensory deficits , she had no fever or numbness which has no change in the bowel movement or urination Objectiv Physical Examinations : -Constitutiona : Cooperative , not in acute distress . -HEENT : nech : supple , no Lymphadenopathy , normal thyroid size . : eyes : no ptosis , no icterus, no photophobia . - neurologic : Cranial nerve II to XII intact , no focal neurological deffecit . -psychatric : alert , oriented X 3 , appropriate affect , intact judgment and insight . -Lymphatic : no Lymphadenopathy . - musculoskeltal : . Lumber spine moter stegnth lower extremities ,thigh and legs 5/5 Right side , 5/5 Left side deep tendon reflexes : normal Knee Jerk , normal ankle Jerk lumber facet Loading Test =positive Right , posiutive Left Range of motion of the lumbar spine Flexion 60 degrees, extension 30 degrees strait leg raising test = negative bilaterally Fabere test= negative bilaterally Sever tenderness over the Sacroiliac joint on the Right , and Left sides Gaenslen test= positive right ,and p ositive left . Seated flexion test= positive right ,and positive Left Computed tomography scan of the lumbar spine= multilevel lumbar degenerative disc disease and multilevel lumbar facet arthropathy, lumbar spinal stenosis Assessment and plan= chronic severe low back pain secondary to multifactorial causes lumbar degenerative disc disease lumbar spinal stenosis and lumbar spondylosis with lumbar facet arthropathy, and bilateral sacroiliitis. The patient continued to have severe low back pain after the paraffin with the medial branch lumbar area she could benefit from bilateral sacroiliac joint steroid injection PQRS Measure Charge Sheet Measure #130: Documentation of Current Meds in Medical Chart: Patient's medications documented in chart Measure #226: Tobacco Use: Screen & Cessation Intervention: Pt is not tobacco user Measure #111: Pneumonia Vaccination: Pneumococcal vaccine not administered or previously received Measure #47: Advance Care Plan: Advance care planning discussed & documented, pt chose/unable to give Measure #412: Opioid Treatment Agreement: No documentation of signed opioid treatment agreement Measure #408: Opioid Therapy Follow-up Evaluation: Patient had NO f/u eval minimum every 3 months during opioid therapy Measure #317: Preventitive Care & Scrn High Bld Press & F/U: Pre-hypertensive or hypertensive BP documented, pt will f/u with PCP Measure #128: Body Mass Index (BMI) Screening & Follow-up: BMI documented ABOVE normal parameters - f/u documented Measure #131: Pain Assessment & Follow-up: Pain positive & plan documented Measure #431: Unhealthy Alcohol Use Preventative Care & Scrn: Patient identified as unhealthy alcohol user; counseling given PQRS Narrative: Time with Patient: Less than 30 Objective - Vital Signs Vital signs: Vital Signs Temp 97.8 F 02/15/21 13:41 Pulse 69 02/15/21 13:41 Resp 18 02/15/21 13:41 BP 154/90 02/15/21 13:41 Pulse Ox 97 02/15/21 13:41
== END ==
LOC: PNWHC3 13:03
PROVIDERS: ATTEND Specialist
DX: M47.816 Spondylosis without myelopathy or radiculopathy, lumbar region (principal); M51.36 Other intervertebral disc degeneration, lumbar region; M48.061 Spinal stenosis, lumbar region without neurogenic claudication; M46.1 Sacroiliitis, not elsewhere classified
CPT/HCPCS: 99211

== ENCOUNTER 2021-03-18 09:18 | Day surgery (SDC) | payer MEDICARE ==
[2021-03-16 10:36] VITALS: BMI 32.8
[2021-03-18 09:32] VITALS: RESP 16; TEMP 96.4
[2021-03-18] MEDS ORDERED: LIDOCAINE 1% (10MG/ML) FOR IV START INTRADERMA ONE (09:50)
[2021-03-18] MEDS ORDERED: MIDAZOLAM 2 MG/2 ML VIAL ONE (10:04)
[2021-03-18] MEDS ORDERED: fentaNYL (PF) 50 MCG/ML 2 ML AMP ONE (10:04)
[2021-03-18] MEDS ORDERED: methylPREDNISolone ACETATE 40 MG/ML 1 ML VIAL ONE (10:04)
[2021-03-18] MEDS ORDERED: ROPIVACAINE 5MG/ML 20ML VIAL ONE (10:04)
--- NOTE | 2021-03-18 10:16 | P.PCN ---
Date of Procedure: 03/18/21 Procedure(s) Performed: Procedure= bilateral sacroiliac joints steroid injection under fluoroscopy guidance (fluoroscopy image stored on file in the radiology Department ) Preoperative diagnosis= 1-sacroiliitis 2-lumbar degenerative disc disease 3- lumbar spondylosis with facet arthropathy Postoperative diagnosis=Same as preop Diagnosis . Complication = none Condition= stable Anesthesia= moderate sedation with intravenous Versed 2 mg , and fentanyl 50 micrograms . Indication for the procedure= patient complaining of low back pain , examination was positive for severe tenderness over the sacroiliac joints bilaterally and patient diagnosed with sacroiliitis, for this reason she was good candidate for sacroiliac joint steroid injection. Description of the procedure= procedure risk and benefits discussed with the patient, including but not limited, risk of infection and bleeding, and ALLERGIC reaction to the medication and not complete pain relief and patient agreed with the preceding patient taken to the operating room, placed in prone position or standard monitors applied to the patient then after induction of anesthesia back prepped with chlorhexidine 3 times , Then under strict sterile technique, first I did the right sacroiliac joint the which was identified under fluoroscopy guidance been local infiltration of the skin and subcu interstitial with lidocaine 1% then 22-gauge Quincke Needle advanced slowly under fluoroscopy and placed in the right sacroiliac joint nee dle placement confirmed with AP and oblique and lateral view and after appropriate needle placement confirmed and after negative aspiration, or heme , then Ropivacaine 0.5% 3 mL, and 40 mg of Depo-Medrol mixed together and injected in the right sacroiliac joint after negative aspiration patient tolerated the procedure well without any complication. Then the left sacroiliac joint steroid injection done under strict sterile technique local infiltration of the skin and subcu interstitial at the location of the left sacroiliac joint then a 22-gauge Quincke Needle advanced slowly under fluoroscopy time placed in the left sacroiliac joint, needle placement confirmed with AP and oblique and lateral view then after appropriate needle placement confirmed and after negative aspiration 0.5% Marcaine 3 mL and 40 mg of Depo-Medrol injected in the left sacroiliac joint after negative aspiration patient tolerated the procedure well that any complications and she will follow up in clinic 3 weeks
[2021-03-18] MEDS ORDERED: IV FLUID CONTINUATION 1,000 ML IV ONE (10:24)
[2021-03-18 10:25] VITALS: PULSE 63
--- NOTE | 2021-03-18 10:26 | FL ---
Fluoroscopy INDICATION: Pain FINDINGS: Fluoroscopy time: 6 seconds. Images obtained: 2. IMPRESSIONS: 1. Documentation of fluoroscopy.
[2021-03-18 10:48] VITALS: BP 142/87
== END 2021-03-18 11:02 | disposition home or self-care (01) ==
LOC: ORPAIN 09:18
PROVIDERS: ATTEND Specialist
DX: M46.1 Sacroiliitis, not elsewhere classified (principal); M51.36 Other intervertebral disc degeneration, lumbar region; M47.816 Spondylosis without myelopathy or radiculopathy, lumbar region
CPT/HCPCS: J2250; J1030; J3010; J2795; G0260

== ENCOUNTER → 2021-04-05 | Outpatient (CLI) | payer MEDICARE ==
[2021-04-05 12:31] VITALS: BP 147/84; PULSE 66; RESP 16; TEMP 97.7
--- NOTE | 2021-04-05 12:49 | P.PN ---
Subjective Progress Note Date: 04/05/21 This is a 70-year-old lady with history of chronic lower back pain with occ asional radiation to the right thigh. The patient denies any paresthesia in the lower extremities at this point. She had multiple injections including lumbar epidural steroid injection, lumbar medial branch RFA, and lately bilateral sacroiliac joint steroid injection. The last injection gave her at least 50% of pain relief. she is willing to have the sacroiliac region injection repeated to get more pain relief. Patient denies new-onset weakness, bowel/bladder incontinence, or any other signs or symptoms of cauda equina syndrome. There are no signs of acute intoxication, and no indications of medication diversion or overuse. In addition to above, 13-point review of systems is also negative for chest pain, shortness of breath, changes in vision, changes in hearing, new onset weakness, abdominal pain, diarrhea, extreme fatigue, malaise, fever, skin changes, homicidal or suicidal ideation, or bowel or bladder incontinence. Vital Signs: Reviewed in EMR Gen: AAOx3, NAD HEENT: PERRLA,hearing grossly normal Pulm: resp unlabored Neck: supple, trachea midline Neuro exam of the lower extremities: Normal muscle strength bilaterally Straight leg raising test: Milton's test: Range of motion of the lumbar spine: Facet loading test: Tenderness in the paravertebral musculature: Positive tenderness at the sacroiliac joint bilaterally Neuro: CN II-XII grossly intact, Imaging: Reviewed in EMR/chart Assessment: Severe lumbar stenosis at the L4 5 level Lumbar spondylosis without myelopathy Bilateral sacroiliitis Plan: 1. Explanation: Opioid and psychological risk scores were reviewed. Diagnoses, prognoses, and multiple treatment options including but not limited to physical therapy, interventional therapies, adjuvant medical therapies, narcotic medication therapies, and surgery were discussed with the patient and all questions were answered to the patient's satisfaction. 2. Opioid agreement: Signed with the patient and the patient is warned not to use opioids while driving or before driving and not to combine opioids with benzodiazepines or alcohol. 3. Counseling: The patient was counseled extensively on SMOKING CESSATION, BODY MASS INDEX, EXERCISE. Specifically, the patient was instructed regarding the importance of smoking cessation, obesity, and exercise in the context of both chronic pain and overall health. 4. Procedures: Repeat sacroiliac joint steroid injection bilaterally 5. Consultations: None 6. Investigations: None 7. Medications: None 8. Disposition: Return to clinic 4 weeks after the above-mentioned injection 9. Maps were reviewed and were appropriate. Objective - Vital Signs Vital signs: Vital Signs Temp 97.7 F 04/05/21 12:23 Pulse 66 04/05/21 12:23 Resp 16 04/05/21 12:23 BP 147/84 04/05/21 12:23 Pulse Ox 95 04/05/21 12:23
== END ==
LOC: PNWHC3 12:08
PROVIDERS: ATTEND Anesthesiology
DX: M47.816 Spondylosis without myelopathy or radiculopathy, lumbar region (principal); M48.061 Spinal stenosis, lumbar region without neurogenic claudication; M46.1 Sacroiliitis, not elsewhere classified; Z88.0 Allergy status to penicillin; Z91.030 Bee allergy status; F17.200 Nicotine dependence, unspecified, uncomplicated
CPT/HCPCS: 99211

== ENCOUNTER 2021-05-18 12:33 | Day surgery (SDC) | payer MEDICARE ==
[2021-05-13 11:58] VITALS: BMI 32.8
[2021-05-18 13:08] VITALS: RESP 16; TEMP 96.8
[2021-05-18] MEDS ORDERED: ROPIVACAINE 5MG/ML 20ML VIAL ONE (13:30)
[2021-05-18] MEDS ORDERED: methylPREDNISolone ACETATE 40 MG/ML 1 ML VIAL ONE (13:30)
[2021-05-18] MEDS ORDERED: MIDAZOLAM 2 MG/2 ML VIAL ONE (13:30)
[2021-05-18] MEDS ORDERED: fentaNYL (PF) 50 MCG/ML 2 ML AMP ONE (13:30)
--- NOTE | 2021-05-18 13:46 | P.PCN ---
Date of Procedure: 05/18/21 Procedure(s) Performed: Procedure= bilateral sacroiliac joints steroid injection under fluoroscopy guidance (fluoroscopy image stored on file in the radiology Department ) Preoperative diagnosis= 1-sacroiliitis 2-lumbar degenerative disc disease 3- lumbar spondylosis with facet arthropathy Postoperative diagnosis=Same as preop Diagnosis . Complication = none Condition= stable Anesthesia= moderate sedation with intravenous Versed 1 mg , and fentanyl 50 micrograms . Indication for the procedure= patient complaining of low back pain , examination was positive for severe tenderness over the sacroiliac joints bilaterally and patient diagnosed with sacroiliitis, for this reason she was good candidate for sacroiliac joint steroid injection. Description of the procedure= procedure risk and benefits discussed with the patient, including but not limited, risk of infection and bleeding, and ALLERGIC reaction to the medication and not complete pain relief and patient agreed with the preceding patient taken to the operating room, placed in prone position or standard monitors applied to the patient then after induction of anesthesia back prepped with chlorhexidine 3 times , Then under strict sterile technique, first I did the right sacroiliac joint the which was identified under fluoroscopy guidance been local infiltration of the skin and subcu interstitial with lidocaine 1% then 22-gauge 5 inches long Quincke Needle advanced slowly under fluoroscopy and placed in the right sacroiliac joint needle placement confirmed with AP and oblique and lateral view and after appropriate needle placement confirmed and after negative aspiration, or heme , then Ropivacaine 0.5% 4 mL, and 30 mg of Depo-Medrol mixed together and injected in the right sacroiliac joint after negative aspiration patient tolerated the procedure well without any complication. Then the left sacroiliac joint steroid injection done under strict sterile technique local infiltration of the skin and subcu interstitial at the location of the left sacroiliac joint then a 22-gauge 5 inches long Quincke Needle advanced slowly under fluoroscopy time placed in the left sacroiliac joint, needle placement confirmed with AP and oblique and lateral view then after appropriate needle placement confirmed and after negative aspiration 0.5% Marcaine 4 mL and 30 mg of Depo-Medrol injected in the left sacroiliac joint after negative aspiration patient tolerated the procedure well that any complications and she will follow up in clinic 3 weeks
[2021-05-18] MEDS ORDERED: IV FLUID CONTINUATION 1,000 ML IV ONE (13:52)
--- NOTE | 2021-05-18 14:11 | FL ---
EXAMINATION TYPE: FL guidance operating room DATE OF EXAM: 05/18/2021 CLINICAL HISTORY: Bilateral sacroiliac joint pain. TECHNIQUE: Fluoroscopy. COMPARISON: None. FINDINGS: Fluoroscopic guidance was provided during pain relief procedure performed by Dr. Finney . A total of 11 seconds of fluoroscopic time was utilized during the procedure and two spot images a re acquired. Images acquired shows needle localization at inferior aspect bilateral sacroiliac joint s. IMPRESSION: As Above.
[2021-05-18 14:36] VITALS: BP 132/73; PULSE 82
== END 2021-05-18 14:30 | disposition home or self-care (01) ==
LOC: ORPAIN 12:33
PROVIDERS: ATTEND Specialist
DX: M53.3 Sacrococcygeal disorders, not elsewhere classified (principal); M51.36 Other intervertebral disc degeneration, lumbar region; M47.896 Other spondylosis, lumbar region
CPT/HCPCS: J2250; J1030; J3010; J2795; G0260; 99152

== ENCOUNTER → 2021-06-09 | Outpatient (CLI) | payer MEDICARE ==
[2021-06-09 13:19] VITALS: BP 134/83; PULSE 68; RESP 16; TEMP 97.6
--- NOTE | 2021-06-09 13:32 | P.PN ---
Subjective Progress Note Date: 06/09/21 This is a 71-year-old lady with history of severe lumbar stenosis, lumbar s pondylosis and degenerative disc disease. The patient had sacroiliac joint steroid injection bilaterally lately which gave for 40% of pain relief. Her pain is still better at this point. Goes down the legs to the knee level bilaterally. She denies any bowel or bladder dysfunction or any weakness in the lower extremities. Patient denies new-onset weakness, bowel/bladder incontinence, or any other signs or symptoms of cauda equina syndrome. There are no signs of acute intoxication, and no indications of medication diversion or overuse. In addition to above, 13-point review of systems is also negative for chest pain, shortness of breath, changes in vision, changes in hearing, new onset weakness, abdominal pain, diarrhea, extreme fatigue, malaise, fever, skin changes, homicidal or suicidal ideation, or bowel or bladder incontinence. Vital Signs: Reviewed in EMR Gen: AAOx3, NAD HEENT: PERRLA,hearing grossly normal Pulm: resp unlabored Neck: supple, trachea midline Neuro exam of the lower extremities: Normal bilaterally Straight leg raising test: Milton's test: Range of motion of the lumbar spine: Facet loading test: Tenderness in the paravertebral musculature: Mild tenderness in the lumbar paravertebral musculature bilaterally Neuro: CN II-XII grossly intact, Imaging: Reviewed in EMR/chart Assessment: Severe lumbar stenosis at L4 5 level Lumbar DDD and lumbar spondylosis without myelopathy Plan: 1. Explanation: When patients on opioids, opioid and psychological risk scores were reviewed. Diagnoses, prognoses, and multiple treatment options including but not limited to physical therapy, interventional therapies, adjuvant medical therapies, narcotic medication therapies, and surgery were discussed with the patient and all questions were answered to the patient's satisfaction. 2. Opioid agreement:When patients are prescribed opoids through our clinic, opioid agreement is signed with the patient and the patient is warned not to use opioids while driving or before driving and not to combine opioids with benzodiazepines or alcohol. 3. Counseling: When patient is smoking or obese, the patient was counseled extensively on SMOKING CESSATION, BODY MASS INDEX, EXERCISE. Specifically, the patient was instructed regarding the importance of smoking cessation, obesity, and exercise in the context of both chronic pain and overall health. 4. Procedures: The patient prefers to avoid RFA on the sacroiliac joints at this point. If her pain gets worse might benefit from another lumbar epidural steroid injection and may be a repeat of RFA on the lumbar medial branches. Due to the patient is on the symptoms at the time of the pain exacerbation. The patient had many questions about the feasibility of pursuing surgical solution and about the multiple injections that she had tried previously. I tried to answer these questions to the best of my knowledge and she left satisfied with these answers. 5. Consultations: None 6. Investigations: None 7. Medications: None prescribed 8. Disposition: Return to clinic as needed 9. Maps were reviewed and were appropriate. Objective - Vital Signs Vital signs: Vital Signs Temp 97.6 F 06/09/21 13:17 Pulse 68 06/09/21 13:17 Resp 16 06/09/21 13:17 BP 134/83 06/09/21 13:17 Pulse Ox 97 06/09/21 13:17
== END | disposition home or self-care (01) ==
LOC: PNWHC3 12:48
PROVIDERS: ATTEND Anesthesiology
DX: M48.061 Spinal stenosis, lumbar region without neurogenic claudication (principal); M51.36 Other intervertebral disc degeneration, lumbar region; M47.816 Spondylosis without myelopathy or radiculopathy, lumbar region
CPT/HCPCS: 99211

== ENCOUNTER 2021-07-20 07:05 | Observation (INO) | payer MEDICARE ==
--- NOTE | 2021-07-20 07:48 | ED ---
Weakness HPI - General Chief complaint: Weakness Stated complaint: Weakness Time Seen by Provider: 07/20/21 07:16 Source: patient, family, RN notes reviewed Mode of arrival: ambulatory Limitations: no limitations - History of Present Illness Initial comments: 71-year-old female history of non-Hodgkin's lymphoma, hypertension was a defibrillator which has never gone off who presents with complaints of episodes of weakness some tightness or upper extremity sometimes her lower she's had 2 recent previous lower extremity weakness episodes and this morning another lower episode. No fevers chills nausea vomiting sweats no palpitations no cough phlegm production no dysuria. This is been going on around 6 weeks. She does take thyroid medication. She along with the weakness sometimes gets tingling to the same areas. There generalized bilateral not focal. Also no complaints of headache or blurry vision. MD Complaint: generalized weakness - Related Data Home Medications Medication Instructions Recorded Confirmed Metoprolol Tartrate [Lopressor] 50 mg PO HS 09/23/14 07/15/21 Metoprolol Tartrate [Lopressor] 100 mg PO DAILY 09/23/14 07/15/21 Multivitamins, Thera [Multivitamin 1 each PO DAILY 09/23/14 07/15/21 (formulary)] buPROPion HCL [Wellbutrin XL] 300 mg PO DAILY 09/23/14 07/15/21 hydroCHLOROthiazide 12.5 mg PO DAILY 09/23/14 07/15/21 lisinopriL [Prinivil] 20 mg PO BID 09/23/14 07/15/21 Pravastatin Sodium [Pravachol] 40 mg PO HS 09/20/16 07/15/21 Levothyroxine Sodium [Synthroid] 62.5 tab PO PATTON 08/07/20 07/15/21 Levothyroxine Sodium [Synthroid] 125 mcg PO MOTUWETHFRSA 08/24/20 07/15/21 Biotin 5 mg PO DAILY 03/16/21 07/15/21 Cholecalciferol (Vitamin D3) 125 mcg PO DAILY 03/16/21 07/15/21 [Vitamin D3 (5000 Iu)] hydrALAZINE HCL [Apresoline] 25 mg PO BID 03/16/21 07/15/21 Calcium Carbonate [Calcium] 600 mg PO DAILY 07/15/21 07/15/21 Allergies Allergy/AdvReac Type Severity Reaction Status Date / Time No Known Allergies Allergy Verified 07/20/21 09:43 Review of Systems ROS Statement: Those systems with pertinent positive or pertinent negative responses have been documented in the HPI. ROS Other: All systems not noted in ROS Statement are negative. Past Medical History Past Medical History: Cancer, Deep Vein Thrombosis (DVT), Hyperlipidemia, Hypertension, Thyroid Disorder Additional Past Medical History / Comment(s): NON HODGKINS LYMPHOMA (chemo received 2005)/ DVT LEFT ARM, spinal stenosis and "disk issue" History of Any Multi-Drug Resistant Organisms: MRSA Date of last positivie culture/infection: 06/03/20 MDRO Source:: MRSA RT Upper ARM Past Surgical History: AICD, Orthopedic Surgery, Tubal Ligation Additional Past Surgical History / Comment(s): LEFT FOOT SX, GENERATOR CHANGE 4- 5 YEARS AGO. Vikash cataracts, pain clinic procedures, CALCIUM DEPOSIT REMOVED RIGHT UPPER SURGERY Past Anesthesia/Blood Transfusion Reactions: Motion Sickness Type of Cardiac Device: AICD Device Placement Date:: 2008 Past Psychological History: ADD/ADHD, Anxiety Smoking Status: Never smoker Past Alcohol Use History: Rare Past Drug Use History: None Reported - Past Family History Father Family Medical History: Cancer Additional Family Medical History / Comment(s): LUNG CANCER General Exam - General Exam Comments Initial Comments: This is a well-developed well-nourished awake alert oriented 3 female Limitations: no limitations General appearance: alert, in no apparent distress Head exam: Present: atraumatic, normocephalic, normal inspection Eye exam: Present: normal appearance, PERRL, EOMI. Absent: scleral icterus, conjunctival injection, periorbital swelling ENT exam: Present: mucous membranes dry Neck exam: Present: normal inspection, full ROM, other (No stridor JVD or bruits). Absent: tenderness, meningismus, lymphadenopathy Respiratory exam: Present: normal lung sounds bilaterally. Absent: respiratory distress, wheezes, rales, rhonchi, stridor Cardiovascular Exam: Present: regular rate, normal rhythm, normal heart sounds. Absent: systolic murmur, diastolic murmur, rubs, gallop, clicks GI/Abdominal exam: Present: soft, normal bowel sounds. Absent: distended, tenderness, guarding, rebound, rigid, bruit, pulsatile mass Extremities exam: Present: normal inspection, full ROM, normal capillary refill. Absent: tenderness, pedal edema, joint swelling, calf tenderness Back exam: Present: normal inspection Neurological exam: Present: alert, oriented X3, CN II-XII intact Psychiatric exam: Present: normal affect, normal mood Skin exam: Present: warm, dry, intact, normal color. Absent: rash Course Vital Signs 07/20/21 07/20/21 07:09 07:32 Temperature 98.0 F Pulse Rate 74 Pulse Rate [ 63 Sitting] Pulse Rate [ 66 Standing] Pulse Rate [ 67 Supine] Respiratory 18 Rate Blood Pressure 159/94 Blood Pressure 152/89 [Sitting] Blood Pressure 149/92 [Standing] Blood Pressure 142/87 [Supine] O2 Sat by Pulse 98 Oximetry Medical Decision Making - Medical Decision Making I did discuss the findings with the patient and family as well as Dr. Mcconnell the patient will be admitted with neurological consultation and further inpatient workup - Lab Data Result diagrams: 07/20/21 07:45 07/20/21 07:45 Lab Results 07/20/21 07/20/21 07/20/21 Range/Units 07:45 07:45 07:45 WBC 5.8 (3.8-10.6) k/uL RBC 4.91 (3.80-5.40) m/uL Hgb 15.9 (11.4-16.0) gm/dL Hct 47.6 H (34.0-46.0) % MCV 96.9 (80.0-100.0) fL MCH 32.4 (25.0-35.0) pg MCHC 33.4 (31.0-37.0) g/dL RDW 13.6 (11.5-15.5) % Plt Count 249 (150-450) k/uL MPV 8.3 Neutrophils % 58 % Lymphocytes % 28 % Monocytes % 8 % Eosinophils % 2 % Basophils % 1 % Neutrophils # 3.4 (1.3-7.7) k/uL Lymphocytes # 1.6 (1.0-4.8) k/uL Monocytes # 0.5 (0-1.0) k/uL Eosinophils # 0.1 (0-0.7) k/uL Basophils # 0.1 (0-0.2) k/uL D-Dimer 1.04 H (<0.60) mg/L FEU Sodium 138 (137-145) mmol/L Potassium 4.3 (3.5-5.1) mmol/L Chloride 107 (98-107) mmol/L Carbon Dioxide 23 (22-30) mmol/L Anion Gap 8 mmol/L BUN 25 H (7-17) mg/dL Creatinine 0.97 (0.52-1.04) mg/dL Est GFR (CKD-EPI)AfAm 68 (>60 ml/min/1.73 sqM) Est GFR (CKD-EPI)NonAf 59 (>60 ml/min/1.73 sqM) Glucose 99 (74-99) mg/dL Plasma Lactic Acid Bon (0.7-2.0) mmol/L Calcium 10.3 H (8.4-10.2) mg/dL Magnesium 2.0 (1.6-2.3) mg/dL Total Bilirubin 0.8 (0.2-1.3) mg/dL AST 57 H (14-36) U/L ALT 42 H (4-34) U/L Alkaline Phosphatase 102 (38-126) U/L Creatine Kinase 182 H (30-135) U/L Troponin I (0.000-0.034) ng/mL Total Protein 7.2 (6.3-8.2) g/dL Albumin 4.0 (3.5-5.0) g/dL Lipase 191 (23-300) U/L TSH 0.164 L (0.465-4.680) mIU/L Urine Color Urine Appearance (Clear) Urine pH (5.0-8.0) Ur Specific Wittmann (1.001-1.035) Urine Protein (Negative) Urine Glucose (UA) (Negative) Urine Ketones (Negative) Urine Blood (Negative) Urine Nitrite (Negative) Urine Bilirubin (Negative) Urine Urobilinogen (<2.0) mg/dL Ur Leukocyte Esterase (Negative) Urine RBC (0-5) /hpf Urine WBC (0-5) /hpf Ur Squamous Epith Cells (0-4) /hpf Urine Mucus (None) /hpf 07/20/21 07/20/21 07/20/21 Range/Units 07:45 07:45 07:45 WBC (3.8-10.6) k/uL RBC (3.80-5.40) m/uL Hgb (11.4-16.0) gm/dL Hct (34.0-46.0) % MCV (80.0-100.0) fL MCH (25.0-35.0) pg MCHC (31.0-37.0) g/dL RDW (11.5-15.5) % Plt Count (150-450) k/uL MPV Neutrophils % % Lymphocytes % % Monocytes % % Eosinophils % % Basophils % % Neutrophils # (1.3-7.7) k/uL Lymphocytes # (1.0-4.8) k/uL Monocytes # (0-1.0) k/uL Eosinophils # (0-0.7) k/uL Basophils # (0-0.2) k/uL D-Dimer (<0.60) mg/L FEU Sodium (137-145) mmol/L Potassium (3.5-5.1) mmol/L Chloride (98-107) mmol/L Carbon Dioxide (22-30) mmol/L Anion Gap mmol/L BUN (7-17) mg/dL Creatinine (0.52-1.04) mg/dL Est GFR (CKD-EPI)AfAm (>60 ml/min/1.73 sqM) Est GFR (CKD-EPI)NonAf (>60 ml/min/1.73 sqM) Glucose (74-99) mg/dL Plasma Lactic Acid Bon 1.2 (0.7-2.0) mmol/L Calcium (8.4-10.2) mg/dL Magnesium (1.6-2.3) mg/dL Total Bilirubin (0.2-1.3) mg/dL AST (14-36) U/L ALT (4-34) U/L Alkaline Phosphatase (38-126) U/L Creatine Kinase (30-135) U/L Troponin I <0.012 (0.000-0.034) ng/mL Total Protein (6.3-8.2) g/dL Albumin (3.5-5.0) g/dL Lipase (23-300) U/L TSH (0.465-4.680) mIU/L Urine Color Light Yellow Urine Appearance Clear (Clear) Urine pH 7.0 (5.0-8.0) Ur Specific Wittmann 1.009 (1.001-1.035) Urine Protein Negative (Negative) Urine Glucose (UA) Negative (Negative) Urine Ketones Negative (Negative) Urine Blood Negative (Negative) Urine Nitrite Negative (Negative) Urine Bilirubin Negative (Negative) Urine Urobilinogen <2.0 (<2.0) mg/dL Ur Leukocyte Esterase Moderate H (Negative) Urine RBC <1 (0-5) /hpf Urine WBC 2 (0-5) /hpf Ur Squamous Epith Cells <1 (0-4) /hpf Urine Mucus Rare H (None) /hpf - Radiology Data Radiology results: report reviewed (Initial imaging reviewed no acute findings), image reviewed Disposition Clinical Impression: Neuropathy, Elevated d-dimer, Weakness Disposition: ADMITTED IP TO THIS [facility] Condition: Stable Referrals: Blanquita Mcconnell MD [Primary Care Provider] - 1-2 days
[2021-07-20 08:17] LABS: Calcium 10.3 mg/dL (8.4-10.2); Potassium 4.3 mmol/L (3.5-5.1); Total Bilirubin 0.8 mg/dL (0.2-1.3); Total Protein 7.2 g/dL (6.3-8.2)
[2021-07-20 08:24] LABS: Basophils # (A) 0.1 k/uL (0-0.2); Basophils % (A) 1 %; Eosinophils # (A) 0.1 k/uL (0-0.7); Eosinophils % (A) 2 %; HCT 47.6 % (34.0-46.0); HGB 15.9 gm/dL (11.4-16.0); Lymphocytes # (A) 1.6 k/uL (1.0-4.8); Lymphocytes % (A) 28 %; MCH 32.4 pg (25.0-35.0); MCHC 33.4 g/dL (31.0-37.0); MCV 96.9 fL (80.0-100.0); Mean Platelet Volume 8.3; Monocytes # (A) 0.5 k/uL (0-1.0); Monocytes % (A) 8 %; Neutrophils # (A) 3.4 k/uL (1.3-7.7); Neutrophils % (A) 58 %; Platelet Count 249 k/uL (150-450); RBC 4.91 m/uL (3.80-5.40); RDW 13.6 % (11.5-15.5); WBC 5.8 k/uL (3.8-10.6)
--- NOTE | 2021-07-20 08:34 | XR ---
EXAMINATION TYPE: XR chest 2V DATE OF EXAM: 07/20/2021 COMPARISON: Chest CT July 26, 2010 HISTORY: Weakness. TECHNIQUE: Frontal and lateral views of the chest are obtained. FINDINGS: There is no suspicious new focal air space opacity, pleural effusion, or pneumothorax seen . The cardiac silhouette size is stable and within normal limits. Single lead pacemaker/defibrillat or redemonstrated. The osseous structures are demineralized. Surgical coils or clips left neck region are partially imaged IMPRESSION: Chronic changes without acute pulmonary process.
[2021-07-20 09:35] LABS: Appearance,Urine Clear (Clear); Bilirubin,Urine Negative (Negative); Blood,Urine Negative (Negative); Color,Urine Light Yellow; Glucose,Urine (UA) Negative (Negative); Ketones,Urine Negative (Negative); Leukocyte Esterase,Urine Moderate (Negative); Mucus,Urine Rare /hpf; Nitrite,Urine Negative (Negative); Protein,Urine Negative (Negative); RBC,Urine <1 /hpf (0-5); Specific Gravity,Urine 1.009 (1.001-1.035); Squamous Epithelial Cell,Urine <1 /hpf (0-4); Urobilinogen,Urine <2.0 mg/dL (<2.0); WBC,Urine 2 /hpf (0-5)
[2021-07-20] MEDS ORDERED: NALOXONE 0.4 MG/ML 1 ML VIAL IV PRN (09:47)
[2021-07-20] MEDS ORDERED: PANTOPRAZOLE 40 MG TABLET PO PRN (09:49)
[2021-07-20 10:34] LABS: T4, Free (Free Thyroxine) 1.68 ng/dL (0.78-2.19)
[2021-07-20] MEDS: LEVOTHYROXINE 125 MCG TAB PO SCH (10:55)
[2021-07-20] MEDS: SODIUM CHLORIDE 0.9% 1,000 ML IV SCH (10:55)
--- NOTE | 2021-07-20 11:12 | CT ---
EXAMINATION TYPE: CT angio chest DATE OF EXAM: 07/20/2021 10:59 AM COMPARISON: CT July 26, 2010 HISTORY: Positive d-dimer, shortness of breath CT DLP: 380.6 mGycm Automated exposure control for dose reduction was used. CONTRAST: CTA scan of the thorax is performed with IV Contrast, patient injected with 100 mL of Isovue 370, pul monary embolism protocol. MIP images are created and reviewed. FINDINGS: LUNGS: Stable 5 mm calcified nodule or granuloma anterior right upper to mid lung axial image 48. Dep endent atelectasis bilateral lower lobes. Persistent somewhat lung volumes without new focal consolid ation. No pleural effusion or pneumothorax seen bilaterally. MEDIASTINUM: There is satisfactory enhancement of the pulmonary artery and its branches, there is no CT evidence for pulmonary embolism. There are no greater than 1 cm noncalcified hilar or mediastinal lymph nodes. Calcified right hilar lymph nodes redemonstrated. No cardiomegaly or pericardial effus ion is seen. Single lead pacemaker/defibrillator is redemonstrated. Satisfactory enhancement of the a renard without dissection. Slightly ectatic ascending aorta up to 3.6 cm. OTHER: Slight scoliotic curvature with mild multilevel spurring. IMPRESSION: No CT evidence for acute pulmonary embolism. No suspicious new acute pulmonary process.
[2021-07-20] MEDS ORDERED: RX INFO: IV CONTRAST WAS GIVEN 1 EACH MISC MISCELLANE PRN (11:13)
--- NOTE | 2021-07-20 11:16 | CT ---
EXAMINATION TYPE: CT brain wo con DATE OF EXAM: 07/20/2021 COMPARISON: None HISTORY: Neuropathy CT DLP: 1098.4 mGycm Automated exposure control for dose reduction was used. FINDINGS: Dental artifact limits portions of the exam. Partially empty sella turcica. Craniocervical junction maintained. There is an area of hyperdensity seen in the interhemispheric fissure measuring 1 x 1 cm. Hyperostosi s of the calvarium noted. Mild generalized degenerative change. Low-attenuation the white matter nonspecific. IMPRESSION: 1.There is a 1 cm area of hyperdensity within the anterior interhemispheric fissure. Differential fernando gnosis would include a small meningioma. A small subdural acute hematoma is not excluded. Case discus sed with referring ER physician. Contrast enhanced study recommended for further evaluation. 2. Degenerative change with nonspecific mild white matter changes most typical remote ischemic change .
--- NOTE | 2021-07-20 16:45 | P.CNNES ---
History of Present Illness Consult date: 07/20/21 Requesting physician: Héctor Bee Reason for Consult: Neuropathy History of Present Illness: Patient is a 71-year-old female with past history of non-Hodgkin's lymphoma (2005, currently in remission), hypertension, defibrillator, came to the hospital this morning at 7:05 AM with complaints of 3 different episodes of p aresthesias and weakness, sometimes tightness of upper extremity sometimes her lower. Patient states that she has history of low back issues for years, which has been getting worse over time. She had previously undergone pain injections, without benefit. The symptoms have gotten worse for the last 6 weeks, with the pain going down back of her legs. She has seen orthopedic surgeon, who has sche duled her for CT myelogram, which is scheduled this Monday at 8 AM (3 days from today). About 6 weeks ago, she had first episode, in which she had paresthesias involving upper extremities. Patient states that she was standing at the fridge, opening the door when she felt her both arms and hands felt hot and tingling, and then she felt as if the strength was draining out. This episode lasted for 30-60 seconds however afterward she felt tired, shaky for a few hours. The second episode occurred 3 weeks later, with sudden onset of hot/tingling sensation involved the lower half of the body from the waist down to the toes. This time she had come back from the bathroom, was sitting on the side of the bed when it happened. She stayed there, and the event (of paresthesias) lasted for 30-60 seconds. Along with it she also felt her arms and hands also felt weak for a while and the symptoms lasted for the whole morning but then it went away. This morning at 5 AM she had her third episode, again involving lower half of the body. She was laying in bed when it happened. She felt heat traveling down her body with tingling sensation. Then she felt as if the "muscle strength has drained out". The episode lasted for 30 seconds to a minute. She still feels weak in her arms and legs. She did check her blood pressure, which was running around 150s systolic and 90-97 diastolics. The symptoms are always bilateral, symmetric. Denies any alteration or loss of consciousness. She denies any history of seizures. Did not have any slurred speech or facial droop. Vital signs with blood pressure 159/94, pulse rate 74 temperature 98.0. Orthostatics were checked, which were negative. Patient's blood test shows normal CBC, Chem-7, with mildly elevated BUN 25 with normal creatinine 0.97. Calcium 10.3. AST is mildly elevated 57, ALT 42. CK is 182. TSH is 0.164. Free T4 normal. UA shows moderate leukocyte esterase. Chest x-ray shows chronic changes without acute pulmonary process. EKG shows normal sinus rhythm. Left axis deviation. Right bundle branch block. CT head was done, which revealed no acute process. There is a 1 cm area of hyperdensity within the anterior interhemispheric fissure. Differential diagnosis would include a small meningioma. A small subdural acute hematoma is not excluded. Also showed some nonspecific white matter disease. CTA of the chest showed no evidence of acute pulmonary embolism. No suspicious new acute pulmonary process. Patient has history of hypertension, denies diabetes. Denies headache. No history of seizures. Patient has history of adult ADD diagnosed about over 10 years ago and she was placed on Wellbutrin and Concerta. She stopped taking Concerta about one year ago but is still maintained on Wellbutrin. She also used to take Aleve for body pains, which she quit 6 weeks ago because her LFTs have gone up. Review of Systems Completely unremarkable except as mentioned in HPI. Patient denies any chest pain shortness of breath. Denies any double vision, loss of vision, hoarseness, sore throat, dysphagia. Denies abdominal pain, nausea vomiting diarrhea. Denies anxiety or depression. Denies headache. No fever or chills. Patient does have constant numbness of the second and third toes of both feet for the last 6 months. Past Medical History Past Medical History: Cancer, Deep Vein Thrombosis (DVT), Hyperlipidemia, Hypertension, Thyroid Disorder Additional Past Medical History / Comment(s): NON HODGKINS LYMPHOMA (chemo received 2005)/ DVT LEFT ARM, spinal stenosis and "disk issue" History of Any Multi-Drug Resistant Organisms: MRSA Date of last positivie culture/infection: 06/03/20 MDRO Source:: MRSA RT Upper ARM Past Surgical History: AICD, Orthopedic Surgery, Tubal Ligation Additional Past Surgical History / Comment(s): LEFT FOOT SX, GENERATOR CHANGE 4- 5 YEARS AGO. Vikash cataracts, pain clinic procedures, CALCIUM DEPOSIT REMOVED RIGHT UPPER SURGERY Past Anesthesia/Blood Transfusion Reactions: Motion Sickness Type of Cardiac Device: AICD Device Placement Date:: 2008 Past Psychological History: ADD/ADHD, Anxiety Smoking Status: Never smoker Past Alcohol Use History: Rare Past Drug Use History: None Reported - Past Family History Father Family Medical History: Cancer Additional Family Medical History / Comment(s): LUNG CANCER Medications and Allergies Home Medications Medication Instructions Recorded Confirmed Type Metoprolol Tartrate [Lopressor] 50 mg PO HS 09/23/14 07/20/21 History Multivitamins, Thera [Multivitamin 1 tab PO DAILY 09/23/14 07/20/21 History (formulary)] buPROPion HCL [Wellbutrin XL] 300 mg PO DAILY 09/23/14 07/20/21 History hydroCHLOROthiazide 12.5 mg PO DAILY 09/23/14 07/20/21 History lisinopriL [Prinivil] 20 mg PO BID 09/23/14 07/20/21 History Levothyroxine Sodium [Synthroid] 62.5 tab PO PATTON 08/07/20 07/20/21 History Levothyroxine Sodium [Synthroid] 125 mcg PO MOTUWETHFRSA 08/24/20 07/20/21 History Biotin 5 mg PO DAILY 03/16/21 07/20/21 History Cholecalciferol (Vitamin D3) 125 mcg PO DAILY 03/16/21 07/20/21 History [Vitamin D3 (5000 Iu)] hydrALAZINE HCL [Apresoline] 25 mg PO BID 03/16/21 07/20/21 History Calcium Carbonate [Calcium] 600 mg PO BID 07/15/21 07/20/21 History Acetaminophen [Tylenol Arthritis] 650 - 1,300 mg PO Q8H PRN 07/20/21 07/20/21 History Metoprolol Tartrate [Lopressor] 100 mg PO DAILY 07/20/21 07/20/21 History Omeprazole 20 mg PO Q48H PRN 07/20/21 07/20/21 History Pravastatin Sodium [Pravachol] 40 mg PO HS 07/20/21 07/20/21 History metroNIDAZOLE 0.75% CREAM 1 applic TOPICAL BID PRN 07/20/21 07/20/21 History [Metrocream] Allergies Allergy/AdvReac Type Severity Reaction Status Date / Time No Known Allergies Allergy Verified 07/20/21 09:43 Physical Examination - Vital Signs Vital Signs: Vital Signs Temp Pulse Pulse Pulse Pulse Resp BP 07/20/21 10:03 64 18 151/94 07/20/21 07:32 63 66 67 07/20/21 07:09 98.0 F 74 18 159/94 BP BP BP Pulse Ox 07/20/21 10:03 98 07/20/21 07:32 152/89 149/92 142/87 07/20/21 07:09 98 Intake and Output 07/19/21 07/20/21 07/20/21 22:59 06:59 14:59 Other: Weight 92.986 kg Patient is an elderly female, very pleasant, in no acute distress. Patient is alert awake oriented to time place and person. Speech and language functions are normal. No aphasia or dysarthria. Attention, concentration and fund of knowledge is adequate. On cranial examination, pupils are round and reacting to light, visual marrero are full on confrontation, with no neglect on double simultaneous stimulation. Her extraocular muscles are intact with no nystagmus. Face is symmetric, tongue protrudes to the midline. Palatal elevation and sensation normal, hearing and shoulder shrug normal, facial sensation normal. Shoulder shrug normal. On muscle strength testing, there is no pronator drift and the strength is normal in arms and legs distally and proximally, except hip flexion which is 4+ to 5-bilaterally. Deep tendon reflexes are symmetric, 1+ at the biceps, 1+ to 2 at brachioradialis, 2+ at the knees, 1 ankles and plantars downgoing bilaterally. No clonus. Sensory to touch is equal with no neglect. Cerebellar function showed no ataxia for [id number] testing. No dysdiadochokinesia. Tone and bulk of muscles normal. Gait normal. On general examination, there is no carotid bruit or murmur, S1-S2 audible. Abdomen is soft nontender. Chest is clear. Peripheral pulses are present. No edema. Results - Laboratory Findings CBC and BMP: 07/20/21 07:45 07/20/21 07:45 Abnormal Lab Findings: Abnormal Labs 07/20/21 07/20/21 07/20/21 07:45 07:45 07:45 Hct 47.6 H D-Dimer 1.04 H BUN 25 H Calcium 10.3 H AST 57 H ALT 42 H Creatine Kinase 182 H TSH 0.164 L Ur Leukocyte Esterase Urine Mucus 07/20/21 07:45 Hct D-Dimer BUN Calcium AST ALT Creatine Kinase TSH Ur Leukocyte Esterase Moderate H Urine Mucus Rare H Assessment and Plan Assessment: * 71-year-old female, who has presented with 3 different episodes of paresthesias, the first one involving upper extremities and the later 2 involving the lower extremities, lasting for 30-60 seconds, followed by gene ralized fatigue and subjective weakness lasting for a few hours. No associated alteration or loss of awareness. Exact cause remains uncertain. Differential diagnosis is between simple partial seizures, TIA, or paresthesias related to spinal stenosis. * Abnormal computed tomography scan of head, with evidence of 1 cm area of hyperdensity within the anterior interhemispheric fissure. Differential is between small meningioma or small subdural hematoma. * Chronic low back pain, probable lumbar spondylosis. Rule out cervical spondylosis. * History of defibrillator * Hypertension * Hyperlipidemia * History of non-Hodgkin's lymphoma (in 2005), currently in remission * History of DVT Plan: * Patient will undergo EEG to rule out any epileptiform activity. * We will repeat computed tomography scan of the head with and without contrast in the morning to follow-up on abnormal intracranial lesion, rule out evolving subdural hematoma versus meningioma. * We will check B12, B6, MMA, folic acid. * Patient already has an appointment with her orthopedic surgeon for outpatient CT myelogram for 07/23/2021. Patient cannot have MRI because of presence of defibrillator. * We will also perform TIA workup including Carotid Doppler and a 2-D echo. * Telemetry monitoring * Would avoid aspirin at this time until subdural hematoma has been ruled out. * Neurology will follow. * Thank you for the consultation. Time with Patient: Greater than 30
--- NOTE | 2021-07-20 22:08 | US ---
EXAMINATION TYPE: US carotid duplex BILAT DATE OF EXAM: 07/20/2021 COMPARISON: NONE CLINICAL HISTORY: Rule out TIA. Pt states weakness EXAM MEASUREMENTS: RIGHT: Peak Systolic Velocity (PSV) cm/sec ----- Right CCA: 47.9 ----- Right ICA: 64.5 ----- Right ECA: 76.8 ICA/CCA ratio: 1.3 RIGHT: End Diastole cm/sec ----- Right CCA: 16.5 ----- Right ICA: 21.7 ----- Right ECA: 7.6 LEFT: Peak Systolic Velocity (PSV) cm/sec ----- Left CCA: 49.8 ----- Left ICA: 82.5 ----- Left ECA: 56.2 ICA/CCA ratio: 1.7 LEFT: End Diastole cm/sec ----- Left CCA: 13.5 ----- Left ICA: 30.2 ----- Left ECA: 0.0 VERTEBRALS (direction of flow): Right Vertebral: Antegrade Left Vertebral: Antegrade Rhythm: Normal No significant stenosis seen IMPRESSION: There is antegrade flow in the vertebral arteries. The images and measurements suggest less than 15% stenosis in both internal carotid arteries. NASCET criteria was used in interpretation of this exam? Criteria for Assigning % of Stenosis / Diameter reduction (Estimation based on the indirect measurements of the internal carotid artery velocities (ICA PSV). 1. Normal (no stenosis)=ICA PSV < 125 cm/s: ratio < 2.0: ICA EDV<40 cm/s. 2. Less than 50% stenosis=ICA PSV < 125 cm/s: ratio < 2.0: ICA EDV<40 cm/s. 3. 50 to 69% stenosis=ICA PSV of 125 to 230 cm/s: ration 2.0 ? 4.0: ICA EDV 40-100 cm/s. 4. Greater than 70% stenosis to near occlusion= ICA PSV > 230 cm/s: ratio > 4.0: ICA EDV > 100 cm/s. 5. Near occlusion= ICA PSV velocities may be low or undetectable: variable ratio and ICA EDV. 6. Total occlusion=unable to detect flow.
[2021-07-21 00:59] LABS: Folate, Serum >24.0 ng/mL
[2021-07-21] MEDS: SODIUM CHLORIDE 0.9% 1,000 ML IV SCH ×3 (01:38→16:43)
[2021-07-21] MEDS: lisinopriL 20 MG TAB PO SCH ×3 (01:45→20:02)
[2021-07-21] MEDS: hydrALAZINE HCL 25 MG TAB PO SCH ×3 (01:45→20:02)
[2021-07-21] MEDS: METOPROLOL TARTRATE 50 MG TAB PO SCH ×3 (01:45→20:03)
[2021-07-21] MEDS: CALCIUM CARBONATE 500 MG CHEWABLE PO SCH ×3 (01:45→20:03)
[2021-07-21] MEDS: ACETAMINOPHEN TAB 325 MG TAB PO PRN ×2 (01:51→20:11)
[2021-07-21] MEDS: LEVOTHYROXINE 125 MCG TAB PO SCH (06:25)
[2021-07-21] MEDS: CHOLECALCIFEROL 25 MCG (1000 IU) TABLET PO SCH (08:09)
[2021-07-21] MEDS: MULTIVITAMINS, THERA 1 EACH TAB PO SCH (08:10)
[2021-07-21] MEDS: buPROPion XL 300 MG TAB.ER.24H PO SCH (08:10)
[2021-07-21] MEDS: hydroCHLOROthiazide 12.5 MG CAP PO SCH (08:10)
[2021-07-21] MEDS ORDERED: NON FORMULARY DRUG (Biotin [Biotin] 5 MG Capsule) PO SCH (09:00)
--- NOTE | 2021-07-21 13:58 | P.HPIM ---
History of Present Illness H&P Date: 07/21/21 HISTORY OF PRESENT ILLNESS This is a 71-year-old female patient of Dr. Kessler with past medical history of hypertension, hyperlipidemia, gastroesophageal reflux disease, hypothyroidism, non-Hodgkin's lymphoma diagnosed in 2005 in remission, ADHD, generalized anxiety disorder. The patient has symptoms of numbness to bilateral hands and legs and feeling like that bottom of her body is numb and this goes away on its own but then she has a sensation that lasts in her hands. Episodes last for about 30-60 minutes. She checked her blood pressure at home and her diastolic was 97 and patient decided to come into the hospital for evaluation. She has had symptoms over the past 6 weeks and has been seen in orthopedic surgeon. She is scheduled for CT myelogram on Monday of this week. All symptoms have resolved at the time of evaluation. Patient came into [facility] emergency center for evaluation. She was afebrile, heart rate in the 60s and 70s, blood pressure 159/94. Pulse ox 98% on room air. Orthostatic vital signs were negative. CBC was unrema rkable. D-dimer 1.04. Electrolytes normal. BUN 25 creatinine 0.97. Calcium 10.3. AST 57, ALT 42, alkaline phosphatase 102. CK was 182. Troponin was negative. Lipase 191. Vitamin B-12 351, folate greater than 24. TSH 0.164 with normal free T4 1 0.68. Urinalysis showed moderate leukoesterase nitrate negative. Chest x-ray showed no acute pulmonary process. CAT scan of the brain showed a 1 cm hyperdensity within the anterior interhemispheric fissure. Differential diagnosis could include a small meningioma. A small subdural acute hematoma is not excluded. Degenerative change with nonspecific white matter changes most typical remote ischemic change. CT angiogram of the chest was negative for pulmonary embolism. No suspicious new acute pulmonary process. Carotid ultrasound revealed less than 15% stenosis in both internal carotid arteries. Echocardiogram reveals EF of 30-35% with borderline concentric left ventricular hypertrophy, trace to mild aortic regurgitation, mild mitral regurgitation, mild tricuspid regurgitation. EEG was abnormal due to presence of bitemporal slowing and sequential sharp appearing waves in the bilateral temporal regions, independent and synchronous. This activity was seen during drowsiness and mild stage II sleep. Myogenic artifact also seen. Suggest prolonged EEG for further evaluation. Patient has been seen and followed by neurology with differential between simple partial seizures, TIA or paresthesias related to spinal stenosis. Patient has been scheduled for a 2.5 hour prolonged EEG for tomorrow and repeat CAT scan of the brain to follow-up on abnormal intracranial lesion to rule out cerebral meningioma versus evolving subdural hematoma. REVIEW OF SYSTEMS At the time of evaluation: Constitutional: No fever, no chills, no night sweats. No weight change. No weakness, fatigue or lethargy. No daytime sleepiness. EENT: No headache. No blurred vision or double vision, no loss of vision. No loss of Hearing, no ringing in the ears, no dizziness. No nasal drainage or congestion. No epistaxis. No sore throat. Lungs: No shortness of breath, cough, no sputum production. No wheezing. Cardiovascular: No chest pain, no lower extremity edema. No palpitations. No paroxysmal nocturnal dyspnea. No orthopnea. No lightheadedness or dizziness. No syncopal episodes. Abdominal: No abdominal pain. No nausea, vomiting. No diarrhea. No constipation. No bloody or tarry stools.. No loss of appetite. Genitourinary: No dysuria, increased frequency, urgency. No urinary retention. Musculoskeletal: No myalgias. No muscle weakness, no gait dysfunction, no frequent falls. No back pain. No neck pain. Integumentary: No wounds, no lesions. No rash or pruritus. No unusual bruising. No change in hair or nails. Neurologic: No aphasia. No facial droop. No change in mentation. No head injury. No headache. No paralysis. No paresthesia. Psychiatric: No depression. No anxiety. No mood swings. Endocrine: No abnormal blood sugars. No weight change. No excessive sweating or thirst. No cold intolerance. MEDICAL HISTORY Hypertension Hyperlipidemia Gastroesophageal reflux disease with esophagitis Hypothyroidism Non-Hodgkin's lymphoma ADHD Generalized anxiety disorder SURGICAL HISTORY Lasix surgery Tubal ligation Right leg scar Neuroma left foot AICD Bilateral cataract removal and intraocular lens implants SOCIAL HISTORY Patient is a lifelong nonsmoker, no alcohol use, no illicit drug use, no marijuana use. FAMILY HISTORY Father at age 78 from coronary artery disease and heart failure diagnosed with heart attack. Mother at age 82 from heart failure and heart attack. Brother is alive with no major medical problems. Patient has one son and one daughter with no major medical problems. PHYSICAL EXAMINATION Gen: This is a 71-year-old female. She is resting in bed appears to be comfortable and in no acute distress. HEENT: Head is atraumatic, normocephalic. Pupils equal, round. Sclerae is anicteric. NECK: Supple. No JVD. No lymphadenopathy. No thyromegaly. LUNGS: Clear to auscultation. No wheezes or rhonchi. No intercostal retractions. HEART: Regular rate and rhythm. No murmur. AICD in precordium. ABDOMEN: Soft. Bowel sounds are present. No masses. No tenderness. EXTREMITIES: No pedal edema. No calf tenderness. Dorsalis pedis +2 bilaterally. NEUROLOGICAL: Patient is awake, alert and oriented x3. Cranial nerves 2 through 12 are grossly intact. ASSESSMENT AND PLAN 1. Paresthesia episodes of unclear etiology, rule out simple partial seizures, TIA or paresthesias related to spinal stenosis. Consult with neurology appreciated. Patient is scheduled for prolonged EEG tomorrow and repeat CAT scan of the brain. 2. Chronic low back pain with probable lumbar spondylosis, rule out cervical spondylosis. Patient is following with orthopedics with scheduled CT myelogram on Monday as an outpatient. 3. Hypertension. Continue hydralazine 25 mg twice daily, hydrochlorothiazide 12.5 mg daily, Lopressor 100 mg in the morning and 50 at bedtime. 4. Hyperlipidemia. 5. Gastroesophageal reflux disease. Continue Protonix. 6. Hypothyroidism. Continue levothyroxine 125 g Monday through Monday and 62.5 on Monday. 7. Non-Hodgkin's lymphoma diagnosed and treated in 2005 in remission. 8. ADHD. 9. Generalized anxiety disorder. Continue Wellbutrin 300 mg daily. 10. DVT prophylaxis. SCDs and [place]. CODE STATUS: Full code Patient placed as an observation status. DISCHARGE PLAN Home. Impression and plan of care have been directed as dictated by the signing physician. Renay Auguste nurse practitioner acting as scribe for signing phys ician. Past Medical History Past Medical History: Cancer, Deep Vein Thrombosis (DVT), Hyperlipidemia, Hypertension, Thyroid Disorder Additional Past Medical History / Comment(s): NON HODGKINS LYMPHOMA (chemo received 2005)/ DVT LEFT ARM, spinal stenosis and "disk issue" History of Any Multi-Drug Resistant Organisms: MRSA Date of last positivie culture/infection: 06/03/20 MDRO Source:: MRSA RT Upper ARM Past Surgical History: AICD, Orthopedic Surgery, Tubal Ligation Additional Past Surgical History / Comment(s): LEFT FOOT SX, GENERATOR CHANGE 4- 5 YEARS AGO. Vikash cataracts, pain clinic procedures, CALCIUM DEPOSIT REMOVED RIGHT UPPER SURGERY Past Anesthesia/Blood Transfusion Reactions: Motion Sickness Type of Cardiac Device: AICD Device Placement Date:: 2008 Past Psychological History: ADD/ADHD, Anxiety Smoking Status: Never smoker Past Alcohol Use History: Rare Past Drug Use History: None Reported - Past Family History Father Family Medical History: Cancer Additional Family Medical History / Comment(s): LUNG CANCER Medications and Allergies Home Medications Medication Instructions Recorded Confirmed Type Metoprolol Tartrate [Lopressor] 50 mg PO HS 09/23/14 07/20/21 History Multivitamins, Thera [Multivitamin 1 tab PO DAILY 09/23/14 07/20/21 History (formulary)] buPROPion HCL [Wellbutrin XL] 300 mg PO DAILY 09/23/14 07/20/21 History hydroCHLOROthiazide 12.5 mg PO DAILY 09/23/14 07/20/21 History lisinopriL [Prinivil] 20 mg PO BID 09/23/14 07/20/21 History Levothyroxine Sodium [Synthroid] 62.5 tab PO PATTON 08/07/20 07/20/21 History Levothyroxine Sodium [Synthroid] 125 mcg PO MOTUWETHFRSA 08/24/20 07/20/21 History Biotin 5 mg PO DAILY 03/16/21 07/20/21 History Cholecalciferol (Vitamin D3) 125 mcg PO DAILY 03/16/21 07/20/21 History [Vitamin D3 (5000 Iu)] hydrALAZINE HCL [Apresoline] 25 mg PO BID 03/16/21 07/20/21 History Calcium Carbonate [Calcium] 600 mg PO BID 07/15/21 07/20/21 History Metoprolol Tartrate [Lopressor] 100 mg PO DAILY 07/20/21 07/21/21 History Omeprazole 20 mg PO Q48H PRN 07/20/21 07/21/21 History Pravastatin Sodium [Pravachol] 40 mg PO HS 07/20/21 07/21/21 History metroNIDAZOLE 0.75% CREAM 1 applic TOPICAL BID PRN 07/20/21 07/21/21 History [Metrocream] Allergies Allergy/AdvReac Type Severity Reaction Status Date / Time No Known Allergies Allergy Verified 07/20/21 09:43 Physical Exam Vitals: Vital Signs Temp Pulse Pulse Resp BP BP Pulse Ox 07/21/21 01:31 97.6 F 76 18 147/88 99 07/20/21 21:06 97.9 F 73 20 144/86 96 07/20/21 20:01 97.8 F 73 18 149/79 98 07/20/21 15:42 98.0 F 70 18 135/87 98 07/20/21 11:30 65 22 151/81 99 07/20/21 10:03 64 18 151/94 98 Intake and Output 07/20/21 07/21/21 07/21/21 22:59 06:59 14:59 Other: # Voids 2 Weight 92.986 kg Results CBC & Chem 7: 07/20/21 07:45 07/20/21 07:45 Labs: Abnormal Lab Results - Last 24 Hours (Table) 07/20/21 07/20/21 07/20/21 Range/Units 07:45 07:45 07:45 Hct 47.6 H (34.0-46.0) % D-Dimer 1.04 H (<0.60) mg/L FEU BUN 25 H (7-17) mg/dL Calcium 10.3 H (8.4-10.2) mg/dL AST 57 H (14-36) U/L ALT 42 H (4-34) U/L Creatine Kinase 182 H (30-135) U/L TSH 0.164 L (0.465-4.680) mIU/L Ur Leukocyte Esterase (Negative) Urine Mucus (None) /hpf 07/20/21 Range/Units 07:45 Hct (34.0-46.0) % D-Dimer (<0.60) mg/L FEU BUN (7-17) mg/dL Calcium (8.4-10.2) mg/dL AST (14-36) U/L ALT (4-34) U/L Creatine Kinase (30-135) U/L TSH (0.465-4.680) mIU/L Ur Leukocyte Esterase Moderate H (Negative) Urine Mucus Rare H (None) /hpf Thrombosis Risk Factor Assmnt - Choose All That Apply Each Risk Factor Represents 2 Points: Age 61-74 years Thrombosis Risk Factor Assessment Total Risk Factor Score: 2 Thrombosis Risk Factor Assessment Level: Low Risk
--- NOTE | 2021-07-21 16:07 | EEG ---
ELECTROENCEPHALOGRAM REPORT DATE OF SERVICE: 07/21/2021 PREAMBLE: This is a 71-year-old female with a history of episodes of paresthesias, rule out seizures. EEG FINDINGS: This is a 21-channel routine EEG recording in a patient utilizing 10/20 international system with referential and bipolar montages. Background consists of well developed, well regulated, moderate voltage activity in 8-9 hertz alpha. Background is posterior- dominant and is reactive to eye opening and closing. Photic driving response was not seen. After the photic stimulation, the patient became drowsy, with appearance of bilaterally symmetric theta frequency rhythm. Frequent sharp-appearing sequential waves were seen in bilateral temporal regions, independent and synchronous. Some stage 2 sleep was seen with appearance of sleep spindles and vertex waves. No electrographic seizure was recorded. EKG channel showed no abnormalities. IMPRESSION: This is probably an abnormal looking EEG, due to presence of bitemporal slowing and sequential sharp-appearing waves seen in bilateral temporal regions, independent and synchronous. This activity was seen only during drowsiness and mild stage 2 sleep, therefore could be normal variant like temporal sharp transients of drowsiness and sleep. However, myogenic artifact was also seen. Suggest prolonged EEG for further evaluation of any interictal epileptiform activity. No electrographic seizure was recorded. MMODL / IJN: [id number] / [facility]ITALAndreia
--- NOTE | 2021-07-21 17:43 | ECHOF ---
Referral Reason:Rule out TIA MEASUREMENTS -------- HEIGHT: 170.2 cm WEIGHT: 93.0 kg BP: IVSd: 1.1 cm (0.6 - 1.1) LVIDd: 5.2 cm (3.9 - 5.3) LVPWd: 1.1 cm (0.6 - 1.1) IVSs: 1.5 cm LVIDs: 3.8 cm LVPWs: 1.3 cm LA Diam: 3.1 cm (2.7 - 3.8) Ao Diam: 2.7 cm (2.0 - 3.7) AV Cusp: 1.9 cm (1.5 - 2.6) LA Diam: 3.3 cm (2.7 - 3.8) MV EXCURSION: 15.618 mm (> 18.000) MV EF SLOPE: 48 mm/s (70 - 150) EPSS: 2.6 cm MV E Keyur: 0.38 m/s MV DecT: 316 ms MV A Keyur: 0.78 m/s MV E/A Ratio: 0.49 RAP: 5.00 mmHg RVSP: 13.69 mmHg FINDINGS -------- Paced rhythm. The left ventricular size is normal. There is borderline concentric left ventricular hypertrophy. Overall left ventricular systolic function is moderate-severely impaired with, an EF between 30 - 35 %. The right ventricle is normal in size. The left atrial size is normal. The right atrial size is normal. Trace to mild aortic regurgitation. Mild mitral regurgitation is present. Mild tricuspid regurgitation present. Right ventricular systolic pressure is normal at < 35 mmHg. Trace/mild (physiologic) pulmonic regurgitation. Echo free space represents a pericardial fat pad. CONCLUSIONS -------- 1. The left ventricular size is normal. 2. There is borderline concentric left ventricular hypertrophy. 3. Overall left ventricular systolic function is moderate-severely impaired with, an EF between 30 - 35 %. 4. The right ventricle is normal in size. 5. The left atrial size is normal. 6. The right atrial size is normal. 7. Trace to mild aortic regurgitation. 8. Mild mitral regurgitation is present. 9. Mild tricuspid regurgitation present. 10. Trace/mild (physiologic) pulmonic regurgitation. 11. Echo free space represents a pericardial fat pad. BLOWN FILM EXTRUSION OPERATOR: Candelaria Bey RDCS
--- NOTE | 2021-07-21 19:01 | P.PN ---
Subjective Progress Note Date: 07/21/21 Patient was seen for a follow-up. Patient's is also present. All her symptoms have resolved. Objective - Vital Signs Vital signs: Vital Signs Temp 98.1 F 07/21/21 15:00 Pulse 62 07/21/21 15:00 Resp 17 07/21/21 15:00 BP 111/74 07/21/21 15:00 Pulse Ox 98 07/21/21 15:00 Intake & Output 07/20/21 07/21/21 07/21/21 18:59 06:59 18:59 Intake Total 237 Balance 237 Weight 92.986 kg 92.986 kg Intake: Oral 237 Other: # Voids 2 1 - Exam No change. Completely nonfocal. - Labs CBC & Chem 7: 07/20/21 07:45 07/20/21 07:45 Assessment and Plan Assessment: * 71-year-old female, who has presented with 3 different episodes of paresthesias, the first one involving upper extremities and the later 2 involving the lower extremities, lasting for 30-60 seconds, followed by generalized fatigue and subjective weakness lasting for a few hours. No associated alteration or loss of awareness. Exact cause remains uncertain. Differential diagnosis is between simple partial seizures, TIA, or paresthesias related to spinal stenosis. * Abnormal computed tomography scan of head, with evidence of 1 cm area of hyperdensity within the anterior interhemispheric fissure. Differential is between small meningioma or small subdural hematoma. * Chronic low back pain, probable lumbar spondylosis. Rule out cervical spondylosis. * History of defibrillator * Hypertension * Hyperlipidemia * History of non-Hodgkin's lymphoma (in 2005), currently in remission * History of DVT Plan: * EEG was performed today, which was slightly technically limited due to myogenic artifact. EEG was considered abnormal due to presence of bitemporal slowing and sequential sharp-appearing waves seen in bilateral temporal region, independent and synchronous. This activity was seen only during drowsiness and mild stage II sleep. Suggest prolonged EEG for further eval uation of any interictal epileptiform activity. No electrographic seizure was recorded. Patient will undergo 2.5 hour prolonged EEG tomorrow. * We will repeat computed tomography scan of the head with and without contrast today to follow-up on abnormal intracranial lesion, rule out cerebral meningioma versus evolving subdural hematoma. * B12 351, B6, MMA still pending, folic acid > 24.0. TSH slightly abnormal 0.164, with normal free T4 1.68. Will defer to IM regarding abnormal TFT. * Patient already has an appointment with her orthopedic surgeon for outpatient CT myelogram for 07/23/2021. Patient cannot have MRI because of presence of defibrillator. * Carotid Doppler showed no significant stenosis, antegrade flow in both vertebral arteries. * 2-D echo revealed normal left ventricular size. Borderline concentric LVH. Left ventricle systolic function is moderate to severely impaired with EF between 30-35%. Left atrial size is normal. * Telemetry monitoring * Would avoid aspirin at this time until subdural hematoma has been ruled out. * Neurology will follow.
--- NOTE | 2021-07-22 02:06 | CT ---
EXAMINATION TYPE: CT brain wo/w con DATE OF EXAM: 07/21/2021 COMPARISON: HISTORY: Abnormal CT. CT DLP: 2216.8 mGycm Automated exposure control for dose reduction was used. CONTRAST: Performed without and with IV Contrast, patient injected with 80 mL of Isovue 300. Exam performed without and with IV contrast. Ventricles have fairly normal size. There is no mass effect nor midline shift. There is no sign of in tracranial hemorrhage. There is mild cerebral atrophy appropriate for age. There is 9 x 4 mm area of increased density in the anterior interhemispheric fissure. This appears to show enhancement and a pr ominent vessel. This is probably a venous angioma. The calvarium is intact. Skull base is intact. The re is normal enhancement of the venous sinuses. There is arterial flow in the anterior middle and pos terior cerebral arteries. There is no pathologic cerebral cortical enhancement IMPRESSION: Enhancing elongated area in the interhemispheric fissure is probably an angioma with a prominent drai anne-marie vein on the right side. No change compared to yesterday.
[2021-07-22] MEDS: LEVOTHYROXINE 125 MCG TAB PO SCH (05:34)
[2021-07-22 07:41] VITALS: TEMP 97.5
[2021-07-22] MEDS: hydroCHLOROthiazide 12.5 MG CAP PO SCH (07:46)
[2021-07-22] MEDS: MULTIVITAMINS, THERA 1 EACH TAB PO SCH (07:47)
[2021-07-22] MEDS: METOPROLOL TARTRATE 50 MG TAB PO SCH (07:48)
[2021-07-22] MEDS: hydrALAZINE HCL 25 MG TAB PO SCH (07:48)
[2021-07-22] MEDS: buPROPion XL 300 MG TAB.ER.24H PO SCH (07:48)
[2021-07-22] MEDS: lisinopriL 20 MG TAB PO SCH (07:49)
[2021-07-22] MEDS: CHOLECALCIFEROL 25 MCG (1000 IU) TABLET PO SCH (07:49)
[2021-07-22] MEDS: CALCIUM CARBONATE 500 MG CHEWABLE PO SCH (07:49)
[2021-07-22] MEDS ORDERED: ASPIRIN 325 MG TAB PO SCH (14:00)
--- NOTE | 2021-07-22 14:04 | EEG ---
ELECTROENCEPHALOGRAM REPORT DATE OF SERVICE: 07/22/2021. ELECTROENCEPHALOGRAM (EEG) REPORT: This is a report from a continuous 2.5 hour inpatient digital EEG performed using the 10/20 international System. HISTORY: Neuropathy, weakness, and paresthesias. CURRENT MEDICATIONS: Tylenol, Wellbutrin, vitamin D3, Synthroid, Lopressor, and others. FINDINGS: Recording start time: 07/22/2021 at 9:59 am. Recording end time: 07/22/2021 at 12:29 pm. EVENTS: During this segment of the patient's long-term EEG recording, no clinical or electrographic seizures were recorded. BACKGROUND: The background activity consisted of 8-9 hertz rhythmic waveforms symmetric through both posterior quadrants. ACTIVATION: Hyperventilation: Not performed. Photic stimulation: Symmetric driving seen. Sleep: Stages I and II sleep noted. ABNORMALITIES: On rare occasion, 3-4 occasions sharp waves were seen over the left frontotemporal region with spread to T1. IMPRESSION: Potentially abnormal prolonged 2.5 hour EEG. No clinical or electrographic seizures were recorded. As mentioned, on rare occasion, sharp waves were seen over the left frontotemporal region. These were not definitively epileptiform in nature as their appearance did vary. A definitive conclusion regarding the etiology of the waveforms could not be made because of their rare occurrence. No seizures were recorded. Clinical correlation is recommended. MMODL / IJN: [id number] /
[2021-07-22 14:41] VITALS: BP 149/87; PULSE 79; RESP 16
--- NOTE | 2021-07-22 21:42 | P.PN ---
Subjective Progress Note Date: 07/22/21 Patient was seen for a follow-up. Patient's is also present. All her symptoms have resolved. No new symptoms. Objective - Vital Signs Vital signs: Vital Signs Temp 97.5 F L 07/22/21 14:40 Pulse 79 07/22/21 14:40 Resp 16 07/22/21 14:40 BP 149/87 07/22/21 14:40 Pulse Ox 98 07/22/21 14:40 Intake & Output 07/22/21 07/22/21 07/23/21 06:59 18:59 06:59 Other: Voiding Method Toilet Toilet # Voids 3 1 - Exam No change. Completely nonfocal. - Labs CBC & Chem 7: 07/20/21 07:45 07/20/21 07:45 Assessment and Plan Assessment: * 71-year-old female, who has presented with 3 different episodes of paresthesias, the first one involving upper extremities and the later 2 invo lving the lower extremities, lasting for 30-60 seconds, followed by generalized fatigue and subjective weakness lasting for a few hours. No associated alteration or loss of awareness. Exact cause remains uncertain. Differential diagnosis is between simple partial seizures, TIA, or paresthesias related to spinal stenosis. * Abnormal computed tomography scan of head, with evidence of 1 cm area of hyperdensity within the anterior interhemispheric fissure. Computed tomography scan of head with contrast reported as probable angioma. I discussed with Dr. Morrow, neuroradiologist, who further discussed with Dr. Anderson, and both of them concurred that the lesion is suggestive of meningioma. No aneurysm or abnormal venous channel. However doubt would be the cause of her current symptoms. * Chronic low back pain, probable lumbar spondylosis. Rule out cervical spondylosis. * History of defibrillator * Hypertension * Hyperlipidemia * History of non-Hodgkin's lymphoma (in 2006), currently in remission * History of DVT Plan: * Computed tomography scan of head with contrast reported as probable angioma. I discussed with Dr. Morrow, neuroradiologist, who further discussed with Dr. Anderson, and both of them concurred that the lesion is suggestive of meningioma. No aneurysm or abnormal venous channel. However doubt would be the cause of her current symptoms. * Prolonged, 2.5 hour EEG was performed today. It was potentially abnormal. No clinical or electrographic seizures were recorded. Rare occasion of sharp waves were seen over the left frontotemporal region. These are not definitively epileptiform in nature as their appearance did very. A definitive conclusion regarding the etiology of the waveforms could not be made because of their rare occurrence. Clinical correlation is recommended. * EEG was performed today, which was slightly technically limited due to myogenic artifact. EEG was considered probably abnormal due to presence of bitemporal slowing and sequential sharp-appearing waves seen in bilateral temporal region, independent and synchronous. This activity was seen only during drowsiness and mild stage II sleep, therefore some component of temporal sharp transients also possibility. Suggest prolonged EEG for further evaluation of any interictal epileptiform activity. No electrographic seizure was recorded. * At this time we will hold off on antiepileptic medication. Patient has been on Wellbutrin, which can lower seizure threshold. I would just stop Wellbutrin at this time and wait and see. Patient will follow up with Dr. Clark in one to 2 weeks. She was recommended to return to ER if she has any other neurological symptoms. She was also recommended to hold off on driving and climbing ladders, unless cleared by her neurologist follow-up. * B12 351, B6, MMA still pending, folic acid > 24.0. TSH slightly abnormal 0.164, with normal free T4 1.68. Will defer to IM regarding abnormal TFT. * Patient already has an appointment with her orthopedic surgeon for outpatient CT myelogram for 07/23/2021. Patient cannot have MRI because of presence of defibrillator. * Carotid Doppler showed no significant stenosis, antegrade flow in both vertebral arteries. * 2-D echo revealed normal left ventricular size. Borderline concentric LVH. Left ventricle systolic function is moderate to severely impaired with EF between 30-35%. Left atrial size is normal. discussed with primary team. Patient had similar abnormality in the echo in the past. Patient will be started on aspirin 325 mg daily. * Telemetry monitoring showing sinus rhythm in 60s and 70s, no other arrhythmia. * Neurologically clear for discharge.
[2021-07-25] MEDS ORDERED: LEVOTHYROXINE 125 MCG TAB PO SCH (06:30)
--- NOTE | 2021-07-26 13:51 | P.DS ---
Providers Date of admission: 07/20/21 09:47 Expected date of discharge: 07/22/21 Attending physician: Blanquita Mcconnell Consults: 07/20/21 09:48 Consult Physician Routine Consulting Provider: Juana Zuniga Consult Reason/Comments: Neuropathy Do you want consulting provider notified?: Yes Primary care physician: Blanquita Mcconnell [facility] Course: HISTORY OF PRESENT ILLNESS This is a 71-year-old female patient of Dr. Mcconnell with past medical history of hypertension, hyperlipidemia, gastroesophageal reflux disease, hypothyroidism, non-Hodgkin's lymphoma diagnosed in 2005 in remission, ADHD, generalized anxiety disorder. The patient has symptoms of numbness to bilateral hands and legs and feeling like that bottom of her body is numb and this goes away on its own but then she has a sensation that lasts in her hands. Episodes last for about 30-60 minutes. She checked her blood pressure at home and her diastolic was 97 and patient decided to come into the hospital for evaluation. She has had symptoms over the past 6 weeks and has been seen in orthopedic surgeon. She is scheduled for CT myelogram on Monday of this week. All symptoms have resolved at the time of evaluation. Patient came into [facility] emergency center for evaluation. She was afebrile, heart rate in the 60s and 70s, blood pressure 159/94. Pulse ox 98% on room air. Orthostatic vital signs were negative. CBC was unremarkable. D-dimer 1.04. Electrolytes normal. BUN 25 creatinine 0.97. Calcium 10.3. AST 57, ALT 42, alkaline phosphatase 102. CK was 182. Troponin was negative. Lipase 191. Vitamin B-12 351, folate greater than 24. TSH 0.164 with normal free T4 1 0.68. Urinalysis showed moderate leukoesterase nitrate negative. Chest x-ray showed no acute pulmonary process. CAT scan of the brain showed a 1 cm hyperdensity within the anterior interhemispheric fissure. Differential diagnosis could include a small meningioma. A small subdural acute hematoma is not excluded. Degenerative change with nonspecific white matter changes most typical remote ischemic change. CT angiogram of the chest was negative for pulmonary embolism. No suspicious new acute pulmonary process. Carotid ultrasound revealed less than 15% stenosis in both internal carotid arteries. Echocardiogram reveals EF of 30-35% with borderline concentric left ventricular hypertrophy, trace to mild aortic regurgitation, mild mitral regurgitation, mild tricuspid regurgitation. EEG was abnormal due to presence of bitemporal slowing and sequential sharp appearing waves in the bilateral temporal regions, independent and synchronous. This activity was seen during drowsiness and mild stage II sleep. Myogenic artifact also seen. Suggest prolonged EEG for further evaluation. Patient has been seen and followed by neurology with differential between simple partial seizures, TIA or paresthesias related to spinal stenosis. Patient has been scheduled for a 2.5 hour prolonged EEG for tomorrow and repeat CAT scan of the brain to follow-up on abnormal intracranial lesion to rule out cerebral meningioma versus evolving subdural hematoma. 07/22: Patient underwent CAT scan of the brain which revealed enhancing elongated area in the interhemispheric fissure is probably an angioma with a prominent draining veins on the right side. No change compared to yesterday. Repeat EEG was slightly abnormal but neurology recommends holding on antiepileptic medication. Dr. Reid recommended discontinuing Wellbutrin as it can lower seizure threshold and patient will follow-up with neurology in 2 weeks as arranged. Regarding his CAT scan report, this was reviewed with 2 other neurologists and thought to be meningioma and not a vascular lesion. Patient was cleared to undergo CT myelogram that was scheduled for Monday. Patient started on aspirin. Patient cleared for discharge by neurology. Patient's symptoms have resolved. Patient will be discharged home today in stable condition. ASSESSMENT AND PLAN 1. Paresthesia episodes of unclear etiology, rule out simple partial seizures, TIA or paresthesias related to spinal stenosis. 2. Chronic low back pain with probable lumbar spondylosis, rule out cervical spondylosis. 3. Hypertension. 4. Hyperlipidemia. 5. Gastroesophageal reflux disease. 6. Hypothyroidism. 7. Non-Hodgkin's lymphoma diagnosed and treated in 2005 in remission. 8. ADHD. 9. Generalized anxiety disorder. DISCHARGE PLAN Home. Impression and plan of care have been directed as dictated by the signing physician. Renay Auguste nurse practitioner acting as scribe for signing physician. Patient Condition at Discharge: Good Plan - Discharge Summary Discharge Rx Participant: No New Discharge Prescriptions: New Aspirin 325 mg PO DAILY tab Continue lisinopriL [Prinivil] 20 mg PO BID hydroCHLOROthiazide 12.5 mg PO DAILY Metoprolol Tartrate [Lopressor] 50 mg PO HS Multivitamins, Thera [Multivitamin (formulary)] 1 tab PO DAILY Levothyroxine Sodium [Synthroid] 62.5 tab PO PATTON Levothyroxine Sodium [Synthroid] 125 mcg PO MOTUWETHFRSA hydrALAZINE HCL [Apresoline] 25 mg PO BID Cholecalciferol (Vitamin D3) [Vitamin D3 (5000 Iu)] 125 mcg PO DAILY Calcium Carbonate [Calcium] 600 mg PO BID Biotin 5 mg PO DAILY metroNIDAZOLE 0.75% CREAM [Metrocream] 1 applic TOPICAL BID PRN PRN Reason: rosacea Omeprazole 20 mg PO Q48H PRN PRN Reason: Gerd Pravastatin Sodium [Pravachol] 40 mg PO HS Metoprolol Tartrate [Lopressor] 100 mg PO DAILY Discontinued buPROPion HCL [Wellbutrin XL] 300 mg PO DAILY Discharge Medication List Metoprolol Tartrate [Lopressor] 50 mg PO HS 09/23/14 [History] Multivitamins, Thera [Multivitamin (formulary)] 1 tab PO DAILY 09/23/14 [H istory] hydroCHLOROthiazide 12.5 mg PO DAILY 09/23/14 [History] lisinopriL [Prinivil] 20 mg PO BID 09/23/14 [History] Levothyroxine Sodium [Synthroid] 62.5 tab PO PATTON 08/07/20 [History] Levothyroxine Sodium [Synthroid] 125 mcg PO MOTUWETHFRSA 08/24/20 [History] Biotin 5 mg PO DAILY 03/16/21 [History] Cholecalciferol (Vitamin D3) [Vitamin D3 (5000 Iu)] 125 mcg PO DAILY 03/16/21 [History] hydrALAZINE HCL [Apresoline] 25 mg PO BID 03/16/21 [History] Calcium Carbonate [Calcium] 600 mg PO BID 07/15/21 [History] Metoprolol Tartrate [Lopressor] 100 mg PO DAILY 07/20/21 [History] Omeprazole 20 mg PO Q48H PRN 07/20/21 [History] Pravastatin Sodium [Pravachol] 40 mg PO HS 07/20/21 [History] metroNIDAZOLE 0.75% CREAM [Metrocream] 1 applic TOPICAL BID PRN 07/20/21 [History] Aspirin 325 mg PO DAILY tab 07/22/21 [Rx] Follow up Appointment(s)/Referral(s): Blanquita Mcconnell MD [Primary Care Provider] - 1-2 days Jean-Paul Clark MD [STAFF PHYSICIAN] - 1 Week (will call you with a ppointment) Patient Instructions/Handouts: Seizure/Epilepsy Discharge Instructions & Follow-Up, Peripheral Neuropathy (GEN) Activity/Diet/Wound Care/Special Instructions: No driving or ladders until cleared by neurology OK to get myelogram tomorrow Discharge Disposition: HOME SELF-CARE
== END 2021-07-22 16:30 | disposition home or self-care (01) ==
LOC: EC 07:05 → 1SOBS 09:47 → 6NMEDSUR 16:46
PROVIDERS: ADMIT Internal Medicine; ATTEND Internal Medicine
DX: R20.2 Paresthesia of skin (principal); G89.29 Other chronic pain; M54.5 Low back pain; I11.9 Hypertensive heart disease without heart failure; R79.89 Other specified abnormal findings of blood chemistry; R94.01 Abnormal electroencephalogram [EEG]; R94.02 Abnormal brain scan; R53.1 Weakness; G62.9 Polyneuropathy, unspecified; M48.00 Spinal stenosis, site unspecified; E78.5 Hyperlipidemia, unspecified; I45.10 Unspecified right bundle-branch block; I08.3 Combined rheumatic disorders of mitral, aortic and tricuspid valves; I65.23 Occlusion and stenosis of bilateral carotid arteries; R94.4 Abnormal results of kidney function studies; R74.01 Elevation of levels of liver transaminase levels; R90.82 White matter disease, unspecified; E03.9 Hypothyroidism, unspecified; K21.00 Gastro-esophageal reflux disease with esophagitis, without bleeding; F41.1 Generalized anxiety disorder; F90.9 Attention-deficit hyperactivity disorder, unspecified type; Z79.890 Hormone replacement therapy; Z79.899 Other long term (current) drug therapy; Z85.72 Personal history of non-Hodgkin lymphomas; Z86.718 Personal history of other venous thrombosis and embolism; Z92.21 Personal history of antineoplastic chemotherapy; Z86.14 Personal history of Methicillin resistant Staphylococcus aureus infection; Z95.810 Presence of automatic (implantable) cardiac defibrillator; Z98.51 Tubal ligation status; Z98.42 Cataract extraction status, left eye; Z98.41 Cataract extraction status, right eye; Z96.1 Presence of intraocular lens; Z98.890 Other specified postprocedural states; Z82.49 Family history of ischemic heart disease and other diseases of the circulatory system; Z80.1 Family history of malignant neoplasm of trachea, bronchus and lung
CPT/HCPCS: 96361 ×2; 96360; 99285; 36415; 95819; 95713; 93005; 93306; 84207; 83921; 85379; 84439; 80053; 84443; 82607; 82550; 82746; 83605; 83690; 83735; 84484; 85025; 81001; 71046; 93880; 70450; 70470; 71275; G0378 ×4; Q9967 ×2

== ENCOUNTER 2021-07-30 07:34 | Day surgery (SDC) | payer MEDICARE ==
[2021-07-30 08:35] VITALS: RESP 16; TEMP 97.7
[2021-07-30] MEDS ORDERED: diazePAM 5 MG TAB PO STA (08:35)
--- NOTE | 2021-07-30 14:20 | FL ---
Lumbar puncture and Myelogram. INDICATION: Pain FINDINGS: Fluoroscopy time: 26 seconds. Images obtained: 5. The procedure was explained to the patient. Risks complications and benefits were discussed. Alternat marcelle were discussed. All questions were answered. Informed consent was obtained. A timeout was performed. The L5-S1 level was chosen for access. There is stenosis at the L4 L4-5 level and severe appearing ar thritis at upper levels for any additional level access. Maximum barrier sterile technique was utiliz ed. The skin was cleansed with Betadine and the patient sterilely prepped and draped in the usual man ner. The skin and deeper tissue was anesthetized with 1% Lidocaine. A 22-gauge needle was attempted b ut was too short for the access. This was exchanged for a longer 20-gauge spinal needle. Additional l idocaine was administered. Utilizing a 20-gauge spinal needle the spinal canal was accessed. Good CSF return was evident. Isovue 200 was utilized, 10 milliliters was administered under fluoroscopic obs ervation. There is free flow of contrast into the CSF space. The stylette was replaced and the needle withdrawn. Fluoroscopic spot images were obtained. The patient tolerated the procedure well. Discharge instructions were discussed with the patient. Th e patient was transferred to CT for additional evaluation. Findings: Limited views of the lumbar spinal canal with contrast were obtained. Multilevel stenosis is evident with extra fecal sac impression. There appears to be severe stenosis with very little cont rast at the L4-5 level. IMPRESSIONS: 1. Successful Lumbar Puncture. 2. Multilevel spinal canal stenosis through all lumbar levels visualized fluoroscopy. This is most se porfirio with essentially no contrast at the L4-5 level.
[2021-07-30 14:39] VITALS: BP 103/56; PULSE 66
--- NOTE | 2021-07-30 15:16 | CT ---
EXAMINATION TYPE: CT lumbar spine w con DATE OF EXAM: 07/30/2021 COMPARISON: Myelogram performed same date HISTORY: Spondylosis with myelopathy CT DLP: 1227.40 mGycm CONTRAST: CT scan of the lumbar is performed with IV Contrast, patient injected with 10 mL of Isovue M200. TECHNIQUE: CT of the lumbar spine is performed on a spiral scan at 3 mm thick sections. Reconstructed images are performed in the coronal and sagittal planes. FINDINGS: T12-L1: There is loss of disc height at this level. Endplate spurring has mild anterior thecal sac co ntact. No AP spinal canal stenosis present. Neural foramen are patent. L1-L2: Cord terminates at the L1-L2 level. Endplate changes and mild anterior thecal sac compression. There is narrowing of the disc height. Vacuum disc phenomenon is present. Minimal retrolisthesis of L1 on L2 may be present. Posterior ligamentum flavum laxity has posterior-lateral thecal sac compress ion. Some spinal canal stenosis appears to be present. Neural foramen are patent. L2-L3: Endplate spurring has moderate anterior thecal sac flattening. No AP spinal canal stenosis pre sent. Facet hypertrophy and ligamentum flavum laxity is contributing to lateral canal narrowing. Ther e is some subluxation of L2 towards the left at L3. L3-L4: Mild posterior disc space narrowing is present. Broad-based disc bulge is present with intrath ecal sac compression. Facet hypertrophy ligamentum flavum laxity is posterior lateral thecal sac comp ression. Spinal canals narrowing is evident although no spinal canal stenosis is noted. L4-L5: Broad-based disc bulge is moderate anterior thecal sac impression. There is a grade 1 spondylo listhesis with disc uncovering. Vacuum disc phenomenon is present. Disc uncovering is moderate anteri or thecal sac compression. Facet hypertrophy and ligamentum flavum laxity or contribute to spinal can al stenosis at this level. L5-S1: No significant disc bulge is evident. No spinal canal stenosis present. Facet hypertrophy is p resent without thecal sac impression. IMPRESSION: 1. Multilevel spinal canal stenosis is greatest at L4-5 secondary to grade 1 spondylolisthesis with d isc uncovering and facet hypertrophy. Canal narrowing is evident with lack of contrast present also n oted at L2-3 and L1-L2. 2. Multilevel degenerative disc changes notably L4-5 and L2-3, L1-2 and T12-L1.
== END 2021-07-30 14:30 | disposition home or self-care (01) ==
LOC: RADPROMAIN 07:34
PROVIDERS: ATTEND Internal Medicine
DX: M48.061 Spinal stenosis, lumbar region without neurogenic claudication (principal)
CPT/HCPCS: 62328; 62304; 72132; J2001

== ENCOUNTER → 2021-11-01 | Outpatient (CLI) | payer MEDICARE | END | disposition home or self-care (01) | LOC: RADMAMWWP 13:09 | PROVIDERS: ATTEND Internal Medicine | DX: Z53.9 Procedure and treatment not carried out, unspecified reason (principal) ==

== ENCOUNTER → 2022-03-07 | Outpatient (CLI) | payer MEDICARE ==
--- NOTE | 2022-03-07 15:57 | BD ---
EXAMINATION TYPE: Axial Bone Density DATE OF EXAM: 03/07/2022 COMPARISON: 10/30/2019 CLINICAL HISTORY: 71 years year old Female. ICD-10 CODE: M81.0 osteoporosis Height: 65 IN Weight: 210 LBS FRAX RISK QUESTIONS: History of Fracture in Adulthood: LT TOE AGE 68 Secondary Osteoporosis: 3. Menopause before 45: AGE 55 RISK FACTORS HISTORY OF: Active: YES Diet low in dairy products/other sources of calcium: YES Postmenopausal woman: AGE 55 MEDICATIONS: Thyroid Medications: YES Which medication: Levothyroxine How Lon+ YEARS Additional Medications: CALCIUM, VIT D, LEVOTHYROXINE, CHOLESTEROL MEDS, WATER PILL, BLOOD PRESSURE M EDS, Additional History: NON HODGEKINS LYMPHOMA WITH CHEMO IN 2005 EXAM MEASUREMENTS: Bone mineral densitometry was performed using the [employer] System. Bone mineral density as measured about the Lumbar spine is: ----- L1-L4(G/cm2): 1.440 T Score Values are as follows: ----- L1: 3.0 ----- L2: 3.5 ----- L3: 2.0 ----- L4: 0.3 ----- L1-L4: 2.2 Bone mineral density has: Increased 4.3% since study of: 10/30/2019 Bone mineral density about the R hip (g/cm2): 0.849 Bone mineral density about the L hip (g/cm2): 0.887 T Score values are as follows: -----R Neck: -1.4 -----L Neck: -1.1 -----R Total: -1.5 -----L Total: -0.7 Bone mineral density has: Decreased -5.9% since study of: 10/30/2019 FRAX%s: The graph provided illustrates a 14.7 chance for a major osteoporotic fx and a 2.0 chance for the hips probability for fx in 10 years time. IMPRESSION: Osteopenia (T Score between -2.5 and -1). There is slightly increased risk of fracture and the patient may be considered for treatment. Re-Screen 2-5 years. NOTE: T-SCORE=SD OF THE YOUNG ADULT MEAN.
--- NOTE | 2022-03-09 09:01 | MM ---
Reason for exam: screening (asymptomatic). Last mammogram was performed 1 year and 9 months ago. History: Patient is postmenopausal and has history of other cancer at age 56. Physical Findings: A clinical breast exam by your physician is recommended on an annual basis and results should be correlated with mammographic findings. MG 3D Screening Mammo W/Cad Bilateral CC and MLO view(s) were taken. Prior study comparison: June 09, 2020, bilateral MG 3d screening mammo w/cad. April 12, 2019, bilateral MG 3d screening mammo w/cad. There are scattered fibroglandular densities. There are few benign appearing round, linear calcifications in the right breast. There is a stable, tiny chronic nodularity in the right breast. There is no discrete abnormality. Left axillary pacemaker redemonstrated. ASSESSMENT: Benign, BI-RAD 2 RECOMMENDATION: Routine screening mammogram of both breasts in 1 year.
== END | disposition home or self-care (01) ==
LOC: RADBDWWP 13:00
PROVIDERS: ATTEND Internal Medicine
DX: Z12.31 Encounter for screening mammogram for malignant neoplasm of breast (principal); M81.0 Age-related osteoporosis without current pathological fracture
CPT/HCPCS: 77063; 77067; 77080

== ENCOUNTER → 2023-08-21 | Outpatient (CLI) | payer MEDICARE ==
--- NOTE | 2023-08-21 11:39 | MM ---
Reason for Exam: Screening (asymptomatic). Last mammogram was performed 1 year(s) and 6 month(s) ago. Patient History: Menarche at age 12. First Full-Term at age 29. Postmenopausal. Other cancer, age 56. Maternal aunt had breast cancer at or over age 50. Risk Values: Lucia 5 year model risk: 2.0%. NCI Lifetime model risk: 4.8%. Prior Study Comparison: 04/12/2019 Bilateral Screening Mammogram, [facility]. 06/09/2020 Bilateral Screening Mammogram, [facility]. 03/07/2022 Bilateral Screening Mammogram, [facility]. Tissue Density: There are scattered fibroglandular densities. Findings: Analyzed By CAD. There is no suspicious group of microcalcifications or new suspicious mass in either breast. Left axillary pacemaker redemonstrated. Stable tiny chronic nodularity within the right breast. Benign calcifications within the right breast. Overall Assessment: Benign, BI-RAD 2 Management: Screening Mammogram of both breasts in 1 year. A clinical breast exam by your physician is recommended on an annual basis and results should be correlated with mammographic findings. Note on Lucia scores and lifetime risk: 1. A Lucia score greater than 3% is considered moderate risk. If this is the case, consider specialist referral to assess eligibility for a risk reducing agent. If overall lifetime risk for the development of breast cancer is 20% or higher, the patient may qualify for future screening with alternating mammogram and breast MRI. Electronically signed and approved by: Jesus San D.O.
== END | disposition home or self-care (01) ==
LOC: RADMAMWWP 10:56
PROVIDERS: ATTEND Internal Medicine
DX: Z12.31 Encounter for screening mammogram for malignant neoplasm of breast (principal); Z78.0 Asymptomatic menopausal state; Z80.3 Family history of malignant neoplasm of breast
CPT/HCPCS: 77063; 77067

== ENCOUNTER → 2025-02-20 | Outpatient (CLI) | payer MEDICARE ==
--- NOTE | 2025-02-20 15:20 | BD ---
EXAMINATION TYPE: Axial Bone Density DATE OF EXAM: 02/20/2025 CLINICAL HISTORY: 74 years old Female. ICD-10 CODE: [id number] OSTEO OF RIGHT HIP , Additional History: Height: 65 Weight: 198 FRAX RISK QUESTIONS: History of Fracture in Adulthood: yes Secondary Osteoporosis: RISK FACTORS HISTORY OF: Surgery to Spine/Hip(right/left)/Wrist (right/left): right hip replacment When: 2022 MEDICATIONS: Thyroid Medications: Which medication: Levothyroxine How Long: about 10 years EXAM MEASUREMENTS: Bone mineral densitometry was performed using the [employer]. Bone mineral density as measured about the Lumbar spine is: ----- L1-L4(G/cm2): 1.422 T Score Values are as follows: ----- L1: 2.7 ----- L2: 2.9 ----- L3: 1.5 ----- L4: 1.1 ----- L1-L4: 2.0 Z Score Values are as follows: ----- L1: 3.6 ----- L2: 3.8 ----- L3: 2.4 ----- L4: 2.1 ----- L1-L4: 2.9 Bone mineral density has: Decreased -1.3% since study of: 03-07-22 Bone mineral density about the L hip (g/cm2): 0.880 T Score values are as follows: -----L Neck: -1.4 -----L Total: -1.0 Z Score values are as follows: -----L Neck: -0.1 -----L Total: 0.1 Bone mineral density has: Decreased -4.0% since study of: 03-07-22 FRAX%s: The graph provided illustrates a 15.7% chance for a major osteoporotic fx and a 2.7% chance f or the hips probability for fx in 10 years time. IMPRESSION: Osteopenia (T Score between -2.5 and -1). There is slightly increased risk of fracture and the patient may be considered for treatment. Re-Screen 2-5 years. NOTE: T-SCORE=SD OF THE YOUNG ADULT MEAN. [facility], , 02/20/2025 3:18 PM
--- NOTE | 2025-02-20 17:31 | MM ---
Reason for Exam: Screening (asymptomatic). Last mammogram was performed 1 year(s) and 6 month(s) ago. Patient History: Menarche at age 12. First Full-Term at age 29. Postmenopausal. Other cancer, age 56. Maternal aunt had breast cancer at or over age 50. Risk Values: Lucia 5 year model risk: 2.0%. NCI Lifetime model risk: 4.5%. Prior Study Comparison: 06/09/2020 Bilateral Screening Mammogram, [facility]. 03/07/2022 Bilateral Screening Mammogram, [facility]. 08/21/2023 Bilateral MG 3D screening mammo w/cad, [facility]. Tissue Density: There are scattered areas of fibroglandular density. Findings: Analyzed By CAD. Unchanged areas of asymmetric density particularly on the left. Generator device projects over the left pectoralis. A few scattered benign round calcifications. There is no suspicious group of microcalcifications or new suspicious mass in either breast. Overall Assessment: Benign, BI-RAD 2 Management: Screening Mammogram of both breasts in 1 year. Patient should continue monthly self-breast exams. A clinical breast exam by your physician is recommended on an annual basis. This exam should not preclude additional follow-up of suspicious palpable abnormalities. Note on Lucia scores and lifetime risk: 1. A Lucia score greater than 3% is considered moderate risk. If this is the case, consider specialist referral to assess eligibility for a risk reducing agent. 2. If overall lifetime risk for the development of breast cancer is 20% or higher, the patient may qualify for future screening with alternating mammogram and breast MRI. [facility], , 02/20/2025 5:28 PM. Electronically signed and approved by: Oscar Morrow M.D. Radiologist
== END | disposition home or self-care (01) ==
LOC: RADMAMWWP 13:47
PROVIDERS: ATTEND Internal Medicine
DX: Z12.31 Encounter for screening mammogram for malignant neoplasm of breast (principal); R92.323 Mammographic fibroglandular density, bilateral breasts; M85.89 Other specified disorders of bone density and structure, multiple sites; Z78.0 Asymptomatic menopausal state; Z80.3 Family history of malignant neoplasm of breast
CPT/HCPCS: 77063; 77067; 77080